=== PATIENT | female | born 1970 | race Caucasian/White ===

== ENCOUNTER → 2019-11-08 08:43 | Outpatient (CLI) | payer OTHER, SELFPAY ==
--- NOTE | 2019-11-08 | DI.MRI.S_ITS ---
PROCEDURE: MR CERVICAL SPINE WO CON INDICATIONS: Pain in right shoulder TECHNIQUE: Noncontrast sagittal T1 spin echo and T2 fast spin echo, sagittal STIR, foraminal oblique sagittal T2 fast spin echo, and axial gradient echo or T2 fast spin echo through the cervical spine. COMPARISON: None. FINDINGS: Image quality: Partially degraded by motion artifact. Alignment and Curvature: There is loss of normal cervical lordosis. There is mild, grade 1 retrolisthesis of C3 on C4 and C4 on C5. Bone Marrow: Marrow demonstrates normal overall signal. Mild reactive signal within the endplates adjacent to the C3-C4, C4-C5, C5-C6, and C6-C7 intervertebral discs. Spinal Cord: Visualized spinal cord has normal size and signal. No cerebellar tonsillar herniation. Paraspinous Soft Tissues: No paravertebral masses. Prevertebral soft tissues are normal in thickness. C2-C3: Mild disc desiccation. No significant canal, nor foraminal stenosis. C3-C4: Mild disc desiccation. Mild diffuse disc bulge with superimposed central protrusion. Moderate canal stenosis. No foraminal stenosis. C4-C5: Moderate disc desiccation. Moderate diffuse disc bulge with superimposed right far lateral broad-based protrusion. Mild bilateral facet hypertrophy. Moderate canal stenosis. Severe right and moderate left foraminal stenosis. Right C5 nerve root compression. C5-C6: Moderate disc desiccation. Mild disc height loss. Mild diffuse disc bulge with superimposed right far lateral broad-based protrusion. Mild facet and uncovertebral hypertrophy bilaterally. Mild canal stenosis. Severe right and mild left foraminal stenosis. Right C6 nerve root compression. C6-C7: Mild disc height loss and desiccation good mild diffuse disc bulge. Mild facet and uncovertebral hypertrophy bilaterally. Mild canal stenosis. Mild bilateral foraminal stenosis. C7-T1: Normal appearance. IMPRESSION: 1. Multilevel degenerative disc and facet disease, as well as uncovertebral hypertrophy. 2. Multilevel canal stenoses, worst at C3-C4 and C4-C5, where there are moderate canal stenoses present. 3. Multilevel foraminal stenoses, worst at C4-C5 and C5-C6 on the right where there is associated intraforaminal nerve root compression. Recommend correlation with clinical symptoms to ascertain relevance of these findings. Dictated by: Adrienne Le M.D. on 11/09/2019 at 11:53 Approved by: Adrienne Le M.D. on 11/09/2019 at 11:57
== END ==
PROVIDERS: PCP Family Medicine; Visit Provider Family Medicine
DX: M25.511 Pain in right shoulder (principal); M50.11 Cervical disc disorder with radiculopathy, high cervical region; M48.02 Spinal stenosis, cervical region
CPT/HCPCS: 72141

== ENCOUNTER 2019-12-24 08:45 | Emergency (ER) | payer OTHER, SELFPAY ==
[2019-12-24 09:05] VITALS: BP 111/53; PULSE 68; RESP 15; TEMP 37.6; O2SAT 99; BMI 23.1
[2019-12-24 09:35] VITALS: PULSE 62
--- NOTE | 2019-12-24 09:51 | DI.US.S_ITS ---
PROCEDURE: US PERIPH VENOUS LOW EXTREM LT INDICATIONS: CALF PAIN TECHNIQUE: Real-time imaging, as well as color and pulse Doppler interrogation, were performed of the lower extremity deep veins from the inguinal ligament to the popliteal fossa. COMPARISON: None. FINDINGS: The common femoral, femoral and popliteal veins are normally compressible, and free of intraluminal thrombus. Color and pulse Doppler demonstrate normal phasic intraluminal flow. There is normal augmentation response to distal compression maneuver. IMPRESSION: No evidence of deep vein thrombosis of the left lower extremity. Dictated by: Wilfredo Pavon M.D. on 12/24/2019 at 9:28 Approved by: Wilfredo Pavon M.D. on 12/24/2019 at 10:23
[2019-12-24] MEDS: IBUPROFEN 400 MG TABLET 800 MG PO (10:38)
[2019-12-24 11:03] LABS: Add Manual Diff / Slide Review NO; Basophils Absolute Auto 0 /uL (0-100); Basophils Percent Auto 0.7 % (0-2); Eosinophils Absolute Auto 100 /uL (0-450); Eosinophils Percent Auto 1.9 % (2-4); Hematocrit 42.5 % (36-46); Hemoglobin 14.4 g/dL (12.0-16.0); Lymphocytes Absolute Auto 2400 /uL (1100-4500); Lymphocytes Percent Auto 33.1 % (25-40); Mean Corpuscular HGB Conc 33.9 % (30-36); Mean Corpuscular Hemoglobin 32.4 PG (26-34); Mean Corpuscular Volume 95.6 fL (80-100); Monocytes Absolute Auto 500 /uL (0-900); Monocytes Percent Auto 6.8 % (3-14); Neutrophils Absolute Auto 4100 /uL (1500-7000); Neutrophils Percent Auto 57.5 % (50-75); Platelet Count 255 X10^3/uL (150-400); Red Blood Cell Count 4.45 X10^6/uL (4.0-5.2); Red Cell Distribution Width 12.9 % (11.6-14.8); White Blood Cell Count 7.2 X10^3/uL (4.5-11.0)
[2019-12-24 11:17] LABS: BUN Creatinine Ratio 16.3 (6-22); Blood Urea Nitrogen 13 mg/dL (7-17); Calcium 9.3 mg/dL (8.4-10.2); Carbon Dioxide 26 mmol/L (22-32); Chloride 103 mmol/L (98-107); Creatine Kinase 98 U/L (30-135); Estimated Glomerular Filt Rate > 60.0 mL/min (>60); Glucose 91 mg/dL (70-100); HEMOLYSIS < 15 (0-50); Potassium 4.1 mmol/L (3.4-5.1); Sodium 138 mmol/L (137-145)
[2019-12-24 11:18] LABS: C-Reactive Protein Quant < 0.5 mg/dL (<1.0)
[2019-12-24 11:19] LABS: Erythrocyte Sedimentation Rate 5 MM/HR (0-20)
--- NOTE | 2019-12-24 11:40 | ED_ITS ---
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 She denied any fall or injury otherwise. She has had no back pain. She denies a previous history of phlebitis or blood clots. She has never before had pain and discomfort like this. She has not been climbing on a ladder or stairs. She states that the pain is a dull achy discom fort that is 4 to 5/10 in intensity. It is annoying. It is worse with plantar flexion of her foot when walking. She has no pain and discomfort over the Achilles tendon or heel. She is unaware of any injury. She does not smoke cigarettes drink alcohol or use any drugs. She denies any fever chills or sweats chest pain cough shortness of breath abdominal pain nausea vomiting or diarrhea. Related Data Home Medications Medication Instructions Recorded Confirmed cholecalciferol (vitamin D3) 5,000 iu PO DAILY #0 02/25/18 12/24/19 valacyclovir 500 mg tablet 500 mg PO DAILY 177 Days #180 tab 12/30/18 12/24/19 cannabidiol 100 mg/mL oral solution 10 mg PO DAILY ml 12/18/19 12/24/19 lamotrigine 100 mg tablet 100 mg PO DAILY tab 12/18/19 12/24/19 sennosides 8.6 mg tablet 8.6 mg PO DAILY #0 12/18/19 12/24/19 lifitegrast [Xiidra] 1 drp OPHTHALMIC (EYE) BID 12/24/19 12/24/19 norethindrone-e.estradiol-iron 1 tab PO DAILY 12/24/19 12/24/19 [12/14 (28)] trazodone 100 mg PO BEDTIME PRN 12/24/19 12/24/19 Previous Rx's Medication Instructions Recorded cyclobenzaprine 10 mg PO TID PRN #14 tab 12/24/19 ibuprofen 600 mg PO Q6H PRN #20 tab 12/24/19 duloxetine 20 mg capsule,delayed 20 mg PO BID #180 cap 12/25/19 release Allergies Allergy/AdvReac Type Severity Reaction Status Date / Time cephalexin [From KEFLEX] Allergy Intermediate RED SPOTS Verified 12/24/19 09:05 ON FACE Review of Systems Review of Systems ROS Unobtainable: All systems reviewed & are unremarkable except as noted in HPI and below Patient History Social History Smoking Status: Never smoker Smoking Status: Never smoker Exam Narrative Exam Narrative: PHYSICAL EXAM: CONSTITUTIONAL: Awake, Alert, Oriented, Coherent, Cooperative in NAD. Does not appear toxic or ill. HEAD: AT/NC EENT: PERRL, FROM of eyes, no discharge, no nystagmus Oral mucosa is moist and pink, posterior pharynx is without erythema or exuda te. NECK: Supple, no obvious JVD, Trachea is midline without stridor, SPINE: No gross deformity, no palpable tenderness of the cervical, thoracic, lumbar or sacral spine. No CVA tenderness. LUNGS: Clear with symmetrical breath sounds without respiratory distress HEART: Normal heart tones, regular rhythm and rate without murmur. ABDOMEN: Soft, non-tender, normal bowel sounds without guarding, rebound, rigidity or palpable mass or organomegaly. EXTREMITIES: No edema, cyanosis, deformity. The patient's left knee is normal with flexion-extension no swelling bruising or erythema. There is no tenderness to palpation over the fibular head or proximal medial tibia. There is no tende rness to palpation over the talofibular or talar tibial ligaments or medial and lateral malleoli. There is no tenderness to palpation over the heel and the distal Achilles tendon. However, the distal calf as it inserts into the Achilles tendon is mildly tender without erythema swelling or bruising noted. The bulk of the posterior calf is nontender. SKIN: No rash, bruising, petechiae or purpura. NEURO: Awake, alert, oriented, conversive, no focal facial asymmetry, moves all 4 extremities and is ambulatory Initial Vital Signs Initial Vital Signs: Vital Signs Temperature 99.6 F 12/24/19 09:05 Pulse Rate 68 12/24/19 09:05 Respiratory Rate 15 12/24/19 09:05 Blood Pressure 111/53 L 12/24/19 09:05 Pulse Oximetry 99 12/24/19 09:05 Course Course Course Narrative: 1140: The patient's ultrasound was negative for deep vein thrombophlebitis. Her electrolytes white blood count and CPK were all normal. The patient will be discharged with a muscle relaxant and on nonsteroidal ibu profen 600 mg q.6 hours. She will be advised to follow-up with her primary care physician. She was advised to rest her leg as much as possible and apply cold compresses or heat whichever makes it feel better every 2-4 hours for 20-30 minutes as needed. The patient was advised to follow-up with her primary care physician because of the does not improve and get better she may need to be seen by Physical therapy. Orders Ordered: Discontinued Medications Ibuprofen (Advil) 800 mg PO NOW ONE Stop: 12/24/19 09:52 Last Admin: 12/24/19 10:38 Dose: 800 mg Documented by: STELLAARRINGTO Vital Signs Vital signs: Vital Signs - 8 hr 12/24/19 09:05 12/24/19 09:35 Temperature 99.6 F Pulse Rate 68 Pulse Rate [Left Dorsalis Pedis] 62 Respiratory Rate 15 Blood Pressure 111/53 L Pulse Oximetry 99 MDM - Extremity (Nontraumatic) Lab Data Attestation: I reviewed the patient's lab results. Result diagrams: 12/24/19 10:55 12/24/19 10:55 Labs: Lab Results 12/24/19 12/24/19 Range/Units 10:55 10:55 WBC 7.2 (4.5-11.0) X10^3/uL RBC 4.45 (4.0-5.2) X10^6/uL Hgb 14.4 (12.0-16.0) g/dL Hct 42.5 (36-46) % MCV 95.6 (80-100) fL MCH 32.4 (26-34) PG MCHC 33.9 (30-36) % RDW 12.9 (11.6-14.8) % Plt Count 255 (150-400) X10^3/uL Neut % (Auto) 57.5 (50-75) % Lymph % (Auto) 33.1 (25-40) % [place] % (Auto) 6.8 (3-14) % Eos % (Auto) 1.9 L (2-4) % Baso % (Auto) 0.7 (0-2) % Neut # (Auto) 4100 (4476-6618) /uL Lymph # (Auto) 2400 (1878-2980) /uL [place] # (Auto) 500 (0-900) /uL Eos # (Auto) 100 (0-450) /uL Baso # (Auto) 0 (0-100) /uL ESR 5 (0-20) MM/HR Sodium 138 (137-145) mmol/L Potassium 4.1 (3.4-5.1) mmol/L Chloride 103 (98-107) mmol/L Carbon Dioxide 26 (22-32) mmol/L BUN 13 (7-17) mg/dL Creatinine 0.80 (0.52-1.04) mg/dL Estimated GFR > 60.0 (>60) mL/min BUN/Creatinine Ratio 16.3 (6-22) Glucose 91 (70-100) mg/dL Calcium 9.3 (8.4-10.2) mg/dL Total Creatine Kinase 98 (30-135) U/L C-Reactive Protein < 0.5 (<1.0) mg/dL Discharge Plan Departure Patient Disposition: Home Clinical Impression: Muscle strain, Tenderness of left calf, Tendinopathy Discharge Date/Time: 12/24/19 11:54 Instructions: Tendinopathy, Calf Muscle Strain, DI for Tendinitis, DI for Muscle Strain Activity Restrictions/Additional Instructions: Rest your leg as much as possible. Apply cold compresses every 2-3 hours for 20-30 minutes or heat at this point to find out whether not it help you with the pain and discomfort you need to follow-up with your primary care physician and be re-evaluated in 3-5 days. If the pain suddenly gets worse need to return to the emergency department Prescriptions: New ibuprofen 600 mg tablet 600 mg PO Q6H PRN (Reason: pain) Qty: 20 RF: 0 cyclobenzaprine 10 mg tablet 10 mg PO TID PRN (Reason: muscle spasm) Qty: 14 RF: 0 No Action valacyclovir 500 mg tablet 500 mg PO DAILY 177 Days Qty: 180 RF: 0 lamotrigine [Lamictal] 100 mg tablet 100 mg PO DAILY RF: 0 cannabidiol 100 mg/mL solution 10 mg PO DAILY RF: 0 cholecalciferol (vitamin D3) 5,000 UNIT capsule 5,000 iu PO DAILY Qty: 0 RF: 0 sennosides [senna] 8.6 mg tablet 8.6 mg PO DAILY Qty: 0 RF: 0 duloxetine 20 mg capsule,delayed release(DR/EC) 20 mg PO BID Qty: 180 RF: 0 norethindrone-e.estradiol-iron [June FE 12/14 (28)] 1 mg-20 mcg (21)/75 mg (7) tablet 1 tab PO DAILY RF: 0 Xiidra 5 % dropperette 1 drp ophthalmic (eye) BID RF: 0 trazodone 50 mg tablet 100 mg PO BEDTIME PRN (Reason: sleep) RF: 0 Referrals: Melinda Franco DO [Primary Care Provider] -
[2019-12-24 11:53] VITALS: BP 106/55; PULSE 73; RESP 16; O2SAT 98
== END 2019-12-24 11:54 | disposition home or self-care (01) ==
PROVIDERS: Emergency Provider Emergency Medicine; PCP Family Medicine
DX: S86.112A Strain of other muscle(s) and tendon(s) of posterior muscle group at lower leg level, left leg, initial encounter (principal); M76.892 Other specified enthesopathies of left lower limb, excluding foot
CPT/HCPCS: 36415; 80048; 82550; 85025; 85651; 86140; 93971; 99283; 99284

== ENCOUNTER 2020-01-30 01:54 | Emergency (ER) | payer OTHER, SELFPAY ==
[2020-01-30 02:07] VITALS: PULSE 244; O2SAT 100
[2020-01-30] MEDS: ADENOSINE 6 MG/2 ML VIAL 18 MG IV (02:33)
[2020-01-30 03:02] LABS: BUN Creatinine Ratio 15.6 (6-22); Blood Urea Nitrogen 14 mg/dL (7-17); Calcium 9.6 mg/dL (8.4-10.2); Carbon Dioxide 25 mmol/L (22-32); Chloride 102 mmol/L (98-107); Estimated Glomerular Filt Rate > 60.0 mL/min (>60); Glucose 152 mg/dL (70-100); HEMOLYSIS < 15 (0-50); Potassium 4.4 mmol/L (3.4-5.1); Sodium 136 mmol/L (137-145)
[2020-01-30 03:29] LABS: Add Manual Diff / Slide Review NO; Basophils Absolute Auto 100 /uL (0-100); Basophils Percent Auto 1.1 % (0-2); Eosinophils Absolute Auto 300 /uL (0-450); Eosinophils Percent Auto 2.6 % (2-4); Hematocrit 49.7 % (36-46); Hemoglobin 17.1 g/dL (12.0-16.0); Lymphocytes Absolute Auto 3900 /uL (1100-4500); Lymphocytes Percent Auto 36.4 % (25-40); Mean Corpuscular HGB Conc 34.4 % (30-36); Mean Corpuscular Volume 95.8 fL (80-100); Monocytes Absolute Auto 700 /uL (0-900); Monocytes Percent Auto 6.1 % (3-14); Neutrophils Absolute Auto 5700 /uL (1500-7000); Neutrophils Percent Auto 53.8 % (50-75); Platelet Count 375 X10^3/uL (150-400); Red Blood Cell Count 5.19 X10^6/uL (4.0-5.2); Red Cell Distribution Width 12.7 % (11.6-14.8); White Blood Cell Count 10.6 X10^3/uL (4.5-11.0)
[2020-01-30 03:53] VITALS: PULSE 93; RESP 14; TEMP 36.6; O2SAT 98
[2020-01-30 03:57] VITALS: BP 107/66
[2020-01-30 04:08] LABS: Troponin I < 0.012 ng/mL (0.01-0.034)
--- NOTE | 2020-01-30 07:41 | ED_ITS ---
HPI - Arrhythmia/Palpitations General Chief Complaint: Arrhythmia/Palpitations Stated Complaint: heart beating real fast Time Seen by Provider: 01/30/20 02:00 Source: patient Mode of arrival: Ambulatory Limitations: no limitations History of Present Illness HPI narrative: 49-year-old female nonsmoker With history of SVT presents with her and a chief complaint of a rather sudden onset of rapid heart rate a nd shortness of breath. She attempted vagal maneuvers at home but unsuccessfully. She is not having any chest pain and is a bit dizzy but not significantly lightheaded. She denies any recent travel nor fever or chills. MD complaint: rapid heart beat, heart racing and palpitations Onset (ago): hour(s) Duration: constant Severity: severe Context: occurred during rest Arrhythmia history: SVT Associated symptoms: shortness of breath Treatments prior to arrival: vagal maneuvers Related Data Home Medications Medication Instructions Recorded Confirmed cholecalciferol (vitamin D3) 5,000 iu PO DAILY #0 02/25/18 12/24/19 valacyclovir 500 mg tablet 500 mg PO DAILY 177 Days #180 tab 12/30/18 12/24/19 cannabidiol 100 mg/mL oral solution 10 mg PO DAILY ml 12/18/19 12/24/19 lamotrigine 100 mg tablet 100 mg PO DAILY tab 12/18/19 12/24/19 sennosides 8.6 mg tablet 8.6 mg PO DAILY #0 12/18/19 12/24/19 lifitegrast [Xiidra] 1 drp OPHTHALMIC (EYE) BID 12/24/19 12/24/19 norethindrone-e.estradiol-iron 1 tab PO DAILY 12/24/19 12/24/19 [12/14 (28)] trazodone 100 mg PO BEDTIME PRN 12/24/19 12/24/19 Previous Rx's Medication Instructions Recorded cyclobenzaprine 10 mg PO TID PRN #14 tab 12/24/19 ibuprofen 600 mg PO Q6H PRN #20 tab 12/24/19 duloxetine 20 mg capsule,delayed 20 mg PO BID #180 cap 12/28/19 release propranolol 10 mg tablet 10 mg PO BID PRN #60 tab MDD 20 01/26/20 Allergies Allergy/AdvReac Type Severity Reaction Status Date / Time cephalexin [From KEFLEX] Allergy Intermediate RED SPOTS Verified 12/24/19 09:05 ON FACE Review of Systems Constitutional Constitutional: Denies chills, Denies fatigue, Denies fever(s), Denies frequent falls, Denies lethargy and Denies weakness Eyes Eyes: Denies change in vision, Denies eye discharge, Denies irritation and De nies loss of vision ENT Ears, Nose, Mouth, and Throat: Denies change in voice, Denies dizziness, Denies neck pain, Denies sore throat and Denies throat swelling Cardiovascular Cardiovascular: Denies chest pain, Denies irregular heart rhythm, Reports lightheadedness, Reports palpitations, Reports dyspnea, Reports dyspnea on e xertion and Denies orthopnea Respiratory Respiratory: Denies cough, Reports dyspnea, Reports dyspnea on exertion and Denies wheezing Gastrointestinal Gastrointestinal: Denies abdominal pain, Denies change in bowel habits, Denies diarrhea, Denies nausea and Denies vomiting Genitourinary Genitourinary: Denies hematuria, Denies flank pain, Denies urinary incontinence and Denies urinary urgency Musculoskeletal Musculoskeletal: Denies back pain, Denies muscle weakness, Denies neck pain, Denies numbness and Denies tingling Integumentary/Breasts Skin/Breast: Denies pruritus, Denies erythema, Denies rash and Denies wounds Neurologic Neurologic: Denies behavioral changes, Denies confusion, Denies dizziness, Denies frequent falls, Denies loss of vision, Denies numbness, Denies tingling and Denies weakness Psychiatric Psychiatric: Denies anxiety, Denies behavioral changes, Denies confusion, Denies depression, Denies homicidal ideation and Denies suicidal ideation Endocrine Endocrine: Denies fatigue, Denies flushing and Reports palpitations Hematologic/Lymphatic Hematologic/Lymphatic: Denies easy bruising Allergic/Immunologic Allergic/Immunologic: Denies urticaria, Denies throat swelling and Denies wheezing Patient History Social History Smoking Status: Never smoker Smoking Status: Never smoker Exam Narrative Exam Narrative: GENERAL: [49] year old patient appears stated age. Well-no urished, well-developed patient, in mild distress. Anxious HEAD: Atraumatic. Normocephalic. EYES: Pupils equal round and reactive. Extraocular motions intact. No scleral icterus. No injection or drainage. ENT: Nose without bleeding, purulent drainage. Throat without erythema, tonsillar hypertrophy or exudate. Airway patent. NECK: Trachea midline. Non tender CARDIOVASCULAR:Rapid but regular rhythm without murmurs, gallops, or rubs. RESPIRATORY: Clear to auscultation. Breath sounds equal bilaterally. No wheezes, rales, or rhonchi. GASTROINTESTINAL: Abdomen soft, non-tender, nondistended. EXTREMITIES: No edema or joint tenderness. BACK: Nontender without deformity or crepitance. No flank tenderness. NEURO: AOx3. SKIN: No rash or erythema of visible areas Initial Vital Signs Initial Vital Signs: Vital Signs Pulse Rate 244 H 01/30/20 02:07 Pulse Oximetry 100 01/30/20 02:07 Course Course Course Narrative: Patient given adenosine 6 mg IV push rapidly and after a brief pause resumes normal sinus rhythm. Patient has complete resolution of symptoms and is otherwise well and free of complaint. Orders Ordered: ED Orders 01/30/20 EKG-12 Lead Routine EKG-12 Lead Stat 01/30/20 02:15 BMP [Basic Metabolic Panel] Stat CBC Auto Diff [Complete Blood Count AUTO DIFF] Stat Troponin I Stat Vital Signs Vital signs: Vital Signs - 8 hr 01/30/20 02:07 01/30/20 03:53 01/30/20 03:57 Temperature 97.9 F Pulse Rate 244 H 93 H Respiratory Rate 14 Blood Pressure [Left Arm] 107/66 Pulse Oximetry 100 98 MDM - Arrhythmia/Palpitations Lab Data Result diagrams: 01/30/20 02:15 01/30/20 02:15 Labs: Lab Results 01/30/20 01/30/20 01/30/20 Range/Units 02:15 02:15 02:15 WBC 10.6 (4.5-11.0) X10^3/uL RBC 5.19 (4.0-5.2) X10^6/uL Hgb 17.1 H (12.0-16.0) g/dL Hct 49.7 H (36-46) % MCV 95.8 (80-100) fL MCH 33.0 (26-34) PG MCHC 34.4 (30-36) % RDW 12.7 (11.6-14.8) % Plt Count 375 (150-400) X10^3/uL Neut % (Auto) 53.8 (50-75) % Lymph % (Auto) 36.4 (25-40) % [place] % (Auto) 6.1 (3-14) % Eos % (Auto) 2.6 (2-4) % Baso % (Auto) 1.1 (0-2) % Neut # (Auto) 5700 (0656-3460) /uL Lymph # (Auto) 3900 (2495-7661) /uL [place] # (Auto) 700 (0-900) /uL Eos # (Auto) 300 (0-450) /uL Baso # (Auto) 100 (0-100) /uL Sodium 136 L (137-145) mmol/L Potassium 4.4 (3.4-5.1) mmol/L Chloride 102 (98-107) mmol/L Carbon Dioxide 25 (22-32) mmol/L BUN 14 (7-17) mg/dL Creatinine 0.90 (0.52-1.04) mg/dL Estimated GFR > 60.0 (>60) mL/min BUN/Creatinine Ratio 15.6 (6-22) Glucose 152 H (70-100) mg/dL Calcium 9.6 (8.4-10.2) mg/dL Troponin I < 0.012 (0.01-0.034) ng/mL Discharge Plan Departure Patient Disposition: Home Clinical Impression: PSVT (paroxysmal supraventricular tachycardia) Discharge Date/Time: 01/30/20 04:03 Instructions: DI for Paroxysmal Supraventricular Tachycardia Activity Restrictions/Additional Instructions: *You have been diagnosed with [SVT] *What to do: * continue to yamile medications as directed *Follow up with your primary care provider in 2-3 days, call for an appointment. Let them know you were seen in the Emergency Department and that we ask that you be seen in follow up *Return to ER if you should have any new, worsening or concerning symptoms Prescriptions: No Action valacyclovir 500 mg tablet 500 mg PO DAILY 177 Days Qty: 180 RF: 0 lamotrigine [Lamictal] 100 mg tablet 100 mg PO DAILY RF: 0 cannabidiol 100 mg/mL solution 10 mg PO DAILY RF: 0 cholecalciferol (vitamin D3) 5,000 UNIT capsule 5,000 iu PO DAILY Qty: 0 RF: 0 sennosides [senna] 8.6 mg tablet 8.6 mg PO DAILY Qty: 0 RF: 0 duloxetine 20 mg capsule,delayed release(DR/EC) 20 mg PO BID Qty: 180 RF: 0 propranolol 10 mg tablet 10 mg PO BID MDD 20 PRN (Reason: anxiety) Qty: 60 RF: 0 norethindrone-e.estradiol-iron [12/14 (28)] 1 mg-20 mcg (21)/75 mg (7) tablet 1 tab PO DAILY RF: 0 Xiidra 5 % dropperette 1 drp ophthalmic (eye) BID RF: 0 trazodone 50 mg tablet 100 mg PO BEDTIME PRN (Reason: sleep) RF: 0 ibuprofen 600 mg tablet 600 mg PO Q6H PRN (Reason: pain) Qty: 20 RF: 0 cyclobenzaprine 10 mg tablet 10 mg PO TID PRN (Reason: muscle spasm) Qty: 14 RF: 0 Referrals: Melinda Franco DO [Primary Care Provider] -
== END 2020-01-30 04:03 | disposition home or self-care (01) ==
PROVIDERS: Emergency Provider Emergency Medicine; PCP Family Medicine
DX: I47.1 Supraventricular tachycardia (principal)
CPT/HCPCS: 36415; 80048; 84484; 85025; 93005; 93010; 96374; 99284; J0153

== ENCOUNTER → 2020-05-12 09:35 | Outpatient (CLI) | payer OTHER, SELFPAY ==
--- NOTE | 2020-05-12 | DI.MG.S_ITS ---
BILATERAL DIGITAL DIAGNOSTIC MAMMOGRAM 3D/2D: 05/12/2020 CLINICAL: Breast pain. Comparison is made to exams dated: 05/24/2015 mammogram, 03/30/2014 mammogram, and 12/04/2012 mammogram - [facility]. The tissue of both breasts is heterogeneously dense. This may lower the sensitivity of mammography. There is an irregular equal density global asymmetry in the left breast central to the nipple middle depth. NO focal areas of architectural distortion. No other significant masses, calcifications, or other findings are seen in either breast. Specifically, no finding to correspond to the patient's right breast upper outer quadrant pain. IMPRESSION: INCOMPLETE: NEEDS ADDITIONAL IMAGING EVALUATION The irregular equal density global asymmetry in the left breast most likely is fibroglandular tissue but remains indeterminate. This has developed since the previous study. An ultrasound is recommended. There is no abnormality seen in the right breast to correspond with the pain in the upper outer quadrant, however, ultrasound is recommended. Bilateral ultrasound was performed immediately following this exam. This exam was interpreted at Station ID: [id number]. NOTE: For mammograms, a report in lay terms will be sent to the patient. Approximately 15% of breast malignancies will not be visualized mammographically. In the management of a palpable breast mass, a negative mammogram must not discourage biopsy of a clinically suspicious lesion. Electronically Signed By: Emmy ward/:05/12/2020 10:48:47 ACR BI-RADS Category 0: Incomplete [id number]
--- NOTE | 2020-05-12 | DI.US.S_ITS ---
LIMITED ULTRASOUND OF RIGHT BREAST: 05/12/2020 CLINICAL: Rt Breast pain. Comparison is made to exams dated: 05/12/2020 mammogram - [facility] and 05/24/2015 mammogram - [facility]. Real-time and continuous wave Doppler ultrasound of the right breast 8-10 o'clock region were performed. No significant abnormalities were seen sonographically in the right breast. Specifically, no finding to correspond to the patient's pain. IMPRESSION: NEGATIVE There is no sonographic evidence of malignancy or finding to explain right breast pain. Return to annual mammogram screening schedule for the right breast is recommended. Findings and recommendations were conveyed to the patient at time of exam. This exam was interpreted at Station ID: [id number]. Electronically Signed By: Emmy ward/:05/12/2020 12:59:57 Ultrasound BI-RADS: 1 Negative
--- NOTE | 2020-05-12 10:56 | DI.US.S_ITS ---
LIMITED ULTRASOUND OF LEFT BREAST: 05/12/2020 CLINICAL: ABN MAMMO. Comparison is made to exams dated: 05/12/2020 mammogram - [facility] and 05/24/2015 mammogram - [facility]. Color flow and real-time ultrasound of the left breast 3-5 o'clock region were performed. Haq scale images of the real-time examination were reviewed. No significant abnormalities were seen sonographically in the left breast. Specifically, no finding to correspond to the patient's mammographic finding of progressive global glandular asymmetry. IMPRESSION: PROBABLY BENIGN No sonographic finding of malignancy. A follow-up left mammogram in 6 months is recommended to demonstrate stability of the changed glandular pattern compared to prior studies. Findings and recommendations were conveyed to the patient at time of exam. This exam was interpreted at Station ID: [id number]. Electronically Signed By: Emmy ward/:05/12/2020 13:02:30 letter sent: Followup Recommended Ultrasound BI-RADS: 3 Probably benign
== END ==
PROVIDERS: PCP Family Medicine; Referring Provider Family Medicine; Visit Provider Family Medicine
DX: R92.8 Other abnormal and inconclusive findings on diagnostic imaging of breast (principal); N64.4 Mastodynia; N64.89 Other specified disorders of breast
CPT/HCPCS: 76642; 77066; G0279

== ENCOUNTER → 2020-11-14 12:41 | Outpatient (CLI) | payer OTHER, SELFPAY ==
--- NOTE | 2020-11-14 | DI.MG.S_ITS ---
UNILATERAL LEFT DIGITAL DIAGNOSTIC MAMMOGRAM 3D/2D SHORT-TERM FOLLOW-UP: 11/14/2020 CLINICAL: Patient returns for a 6 month follow up of the left breast. Comparison is made to exams dated: 05/12/2020 ultrasound, 05/12/2020 mammogram - [facility], and 05/24/2015 mammogram - [facility]. The tissue of left breast is heterogeneously dense. This may lower the sensitivity of mammography. Redemonstration of previously described irregular equal density global asymmetry in the left breast central to the nipple middle depth. This is not significantly changed and was not seen on the prior ultrasound. No other significant masses or calcifications are seen in the breast. IMPRESSION: PROBABLY BENIGN The stable equal density global asymmetry in the left breast most likely is fibroglandular tissue and is probably benign. A follow-up left mammogram with possible ultrasound in 6 months is recommended to demonstrate stability. The patient will also be due for screening mammogram of the contralateral breast at that time. Findings and recommendations were conveyed to the patient during today's evaluation. This exam was interpreted at Station ID: [id number]. NOTE: For mammograms, a report in lay terms will be sent to the patient. Approximately 15% of breast malignancies will not be visualized mammographically. In the management of a palpable breast mass, a negative mammogram must not discourage biopsy of a clinically suspicious lesion. Electronically Signed By: Sebastian Castillo M.D. aty/:11/14/2020 13:52:13 letter sent: Followup Recommended ACR BI-RADS Category 3: Probably benign 3343F
== END ==
PROVIDERS: PCP Family Medicine; Referring Provider Family Medicine; Visit Provider Family Medicine
DX: R92.8 Other abnormal and inconclusive findings on diagnostic imaging of breast (principal); N64.89 Other specified disorders of breast
CPT/HCPCS: 77065; G0279

== ENCOUNTER → 2021-05-03 14:53 | Outpatient (CLI) | payer OTHER, SELFPAY ==
--- NOTE | 2021-05-03 | DI.MG.S_ITS ---
BILATERAL DIGITAL DIAGNOSTIC MAMMOGRAM 3D/2D SHORT-TERM FOLLOW-UP: 05/03/2021 CLINICAL: Short term follow up of the left breast, due for bilateral imaging. Comparison is made to exams dated: 11/14/2020 mammogram, 05/12/2020 mammogram - [facility], 05/24/2015 mammogram - [facility], 05/12/2020 ultrasound, 03/26/2011 mammogram - [facility], and 03/30/2014 mammogram - [facility]. The tissue of both breasts is heterogeneously dense. This may lower the sensitivity of mammography. There is an irregular equal density global asymmetry in the left breast central to the nipple middle depth. This is not significantly changed and was not seen on the prior ultrasound. No other significant masses, calcifications, or other findings are seen in either breast. IMPRESSION: PROBABLY BENIGN The irregular equal density global asymmetry in the left breast most likely is fibroglandular tissue and is probably benign. A follow-up mammogram in 12 months is recommended. This exam was interpreted at Station ID: [id number]. NOTE: For mammograms, a report in lay terms will be sent to the patient. Approximately 15% of breast malignancies will not be visualized mammographically. In the management of a palpable breast mass, a negative mammogram must not discourage biopsy of a clinically suspicious lesion. Electronically Signed By: Luís hooper/cassie:05/03/2021 15:31:44 letter sent: Followup Recommended ACR BI-RADS Category 3: Probably benign 3343F
== END ==
PROVIDERS: PCP Family Medicine; Referring Provider Family Medicine; Visit Provider Family Medicine
DX: R92.8 Other abnormal and inconclusive findings on diagnostic imaging of breast (principal); N64.89 Other specified disorders of breast
CPT/HCPCS: 77066; G0279

== ENCOUNTER → 2022-06-19 10:00 | Outpatient (CLI) | payer OTHER, SELFPAY ==
--- NOTE | 2022-06-19 | DI.MG.S_ITS ---
BILATERAL DIGITAL DIAGNOSTIC MAMMOGRAM 3D/2D: 06/19/2022 CLINICAL: Left short follow up, due bilateral. Comparison is made to exams dated: 05/03/2021 mammogram, 11/14/2020 mammogram, 05/12/2020 mammogram - [facility], and 05/24/2015 mammogram - [facility]. The tissue of both breasts is heterogeneously dense. This may lower the sensitivity of mammography. There is a stable global asymmetry in the left breast central to the nipple middle depth. This was not seen on the prior ultrasound. No other significant masses, calcifications, or other findings are seen in either breast. IMPRESSION: BENIGN There is no mammographic evidence of malignancy. The stable global asymmetry in the left breast is consistent with fibroglandular tissue and is benign. A 1 year screening mammogram is recommended. Based on the Tyrer Cuzick model (a risk assessment model) the patient's lifetime risk is 12.9% and her 10 year risk is 3.2%. According to the ACR, ACS, and NCCN guidelines, an annual breast MRI exam along with mammogram is recommended if the patient's lifetime risk is 20% or greater. This exam was interpreted at Station ID: [id number]. NOTE: For mammograms, a report in lay terms will be sent to the patient. Approximately 15% of breast malignancies will not be visualized mammographically. In the management of a palpable breast mass, a negative mammogram must not discourage biopsy of a clinically suspicious lesion. Electronically Signed By: Cory Orta M.D. slc/:06/19/2022 10:29:05 letter sent: Normal Exam ACR BI-RADS Category 2: Benign Finding(s) 3342F
== END ==
PROVIDERS: PCP Family Medicine; Referring Provider Family Medicine; Visit Provider Family Medicine
DX: R92.8 Other abnormal and inconclusive findings on diagnostic imaging of breast (principal)
CPT/HCPCS: 77066; G0279

== ENCOUNTER → 2022-11-22 11:57 | Outpatient (CLI) | payer OTHER, SELFPAY ==
--- NOTE | 2022-11-22 | DI.ECHO.S_ITS ---
[facility] +---------+ : : [address] : [place] : : : : [id number] : : : : Phone: [phone]---------+ Echocardiogram Report + + :Name: REBECA HARRIS Study Date: 11/22/2022 Height: 64 in : :[facility] ReadingLocation: Weight: 140 lb : : Gender: Female BSA: 1.7 m2 : :: 1970 Age: 52 yrs BP: 112/78 mmHg: :Reason For Study: PALPITATIONS : :Ordering Physician: RICHARD, : :TERESA Jacobs Performed By: Mariposa Becker : :Referring: TERESA COLMENARES : + + Interpretation Summary The ejection fraction is estimated to be 55-60%. Diastolic parameters suggest probable normal left ventricular diastolic function and normal filling pressures. The right ventricle is normal in size and function. No significant valvular abnormalities. Unable to estimate PASP. Procedure: A two-dimensional transthoracic echocardiogram with color flow and Doppler was performed. The study quality was technically adequate. Images from the parasternal window were difficult to obtain and are suboptimal in quality. There is no prior echocardiogram noted for this patient. The patient was in sinus rhythm with heart rates between 58-69 bpm during the exam. Left Ventricle: The left ventricle is normal in size and wall thickness. The ejection fraction is estimated to be 55-60%. Diastolic parameters suggest probable normal left ventricular diastolic function and normal filling pressures. Right Ventricle: The right ventricle is normal in size and function. Atria: The left atrial size is normal. Right atrial size is normal. There is no Doppler evidence for an interatrial shunt. Mitral Valve: The mitral valve is normal in structure and function. There is trace mitral regurgitation. Aortic Valve: The aortic valve is not well visualized. The aortic valve opens well. There is no aortic valve stenosis. No aortic regurgitation is present. Tricuspid Valve: The tricuspid valve is normal in structure and function. No tricuspid regurgitation. Pulmonary artery pressures cannot be estimated because of the lack of a measurable TR jet velocity. Pulmonic Valve: The pulmonic valve is not well visualized. There is no pulmonic valvular regurgitation. Great Vessels: The aortic root is normal size. The ascending aorta could not be visualized. The IVC is of normal diameter and collapses greater than 50% with a sniff. This suggests a low right atrial pressure of 3 mm Hg. Pericardium/ Pleura There is no pericardial effusion. There is no pleural effusion. MMode/2D Measurements & Calculations LVIDd: 4.7 cm LVOT diam: 2.0 cm LVIDs: 2.9 cm Ao root diam: 2.7 cm FS: 37.3 % Ao Arch Diam (Prox Trans): 2.9 cm EPSS: 0.60 cm IVSd: 0.63 cm LVPWd: 0.75 cm LV bear. diameter/BSA (cm/m^2): 2.8 LV sys. diameter/BSA (cm/m^2): 1.7 LA A2 area: 16.5 cm2 RA long axis: 4.3 cm LA A4 area: 13.4 cm2 RA area: 12.5 cm2 LA length (vol): 4.3 cm RA vol: 31.1 ml LA vol: 43.5 ml RA : 18.5 ml/m2 LA vol index: 25.9 ml/m2 IVC diam: 1.3 cm RVD1 (basal): 3.0 cm RVD2 (mid): 2.3 cm TAPSE: 1.6 cm Doppler Measurements & Calculations Ao V2 max: 98.2 cm/sec LVOT Max Juan: 90.4 cm/sec Ao V2 mean: 65.8 cm/sec LV V1 max P.3 mmHg Ao max P.9 mmHg LV V1 VTI: 18.8 cm Ao mean P.0 mmHg MIKHAIL(I,D): 2.8 cm2 Ao V2 VTI: 21.3 cm MIKHAIL(V,D): 2.9 cm2 sev ratio: 0.88 MIKHAIL indexed to BSA (cm^2/m^2): 1.6 MV E max juan: 69.0 cm/sec TR max juan: 150.2 cm/sec MV A max juan: 41.8 cm/sec TR max P.0 mmHg MV E/A: 1.7 PA V2 max: 85.0 cm/sec Med Peak E' Juan: 12.0 cm/sec PA V2 mean: 60.7 cm/sec E/E' med: 5.8 PA mean P.6 mmHg Lat Peak E' Juan: 12.9 cm/sec PA pr(Accel): 20.8 mmHg E/E' lat: 5.4 E/e' average: 5.6 MV dec time: 0.23 sec SVLVOT): 58.8 ml Reading Physician:08:56 AM
[2022-11-22 13:22] LABS: COVID19 -Nasal RAPID Negative (Negative)
--- NOTE | 2022-11-22 19:12 | DI.NM.S_ITS ---
DATE OF SERVICE: 11/22/2022 PROCEDURE: Exercise stress test. INDICATION: Palpitation. CARDIAC STRESS: Patient underwent exercise stress test under the supervision of an attending staff. She walked on Joseph protocol for 8 minutes and 11 seconds, achieved maximum heart rate of 158, which was 93 percent of target heart rate. Normal blood pressure response. Resting blood pressure 108/68 mmHg and peak blood pressure 158/68 mmHg. Achieved 10.1 METs of workload. IVET -5 percent. Baseline rhythm was sinus. During stress, no convincing ischemic changes seen. No significant arrhythmias. No ischemic changes. The patient felt fatigued. CONCLUSION: Exercise stress test is negative for inducible ischemia. Normal hemodynamic response. Functional aerobic impairment -5 percent. No ischemic symptoms or significant arrhythmias. Overall, low-risk exercise stress test. Sarina Melissa - YARI/surendra/sheri doc#: [id number]/job#: [id number] dd: 11/22/2022 17:22:00 dt: 11/22/2022 19:06:00 DICTATING /COPIES TO: Lina Pro MD COPIES MNE: ORI;
== END ==
PROVIDERS: PCP Family Medicine; Referring Provider Internal Medicine Cardiovascular Disease; Visit Provider Internal Medicine Cardiovascular Disease
DX: R00.2 Palpitations (principal); Z20.822 Contact with and (suspected) exposure to COVID-19
CPT/HCPCS: 87635; 93017; 93306

== ENCOUNTER → 2023-06-25 09:20 | Outpatient (CLI) | payer OTHER, SELFPAY ==
--- NOTE | 2023-06-25 | DI.MG.S_ITS ---
BILATERAL DIGITAL SCREENING MAMMOGRAM 3D/2D WITH CAD: 06/25/2023 CLINICAL: Routine screening. Comparison is made to exams dated: 06/19/2022 mammogram, 05/03/2021 mammogram, and 05/12/2020 mammogram - . Both breasts are heterogeneously dense, which may obscure small masses (category c / 51-75% glandular tissue). Current study was also evaluated with a Computer Aided Detection (CAD) system. No significant masses, calcifications, or other findings are seen in either breast. There has been no significant interval change. IMPRESSION: NEGATIVE There is no mammographic evidence of malignancy. A 1 year screening mammogram is recommended. Based on the Tyrer Cuzick model (a risk assessment model) the patient's lifetime risk is 12.8% and her 10 year risk is 3.3%. According to the ACR, ACS, and NCCN guidelines, an annual breast MRI exam along with mammogram is recommended if the patient's lifetime risk is 20% or greater. This exam was interpreted at Station ID: [id number]. NOTE: For mammograms, a report in lay terms will be sent to the patient. Approximately 15% of breast malignancies will not be visualized mammographically. In the management of a palpable breast mass, a negative mammogram must not discourage biopsy of a clinically suspicious lesion. Electronically Signed By: Zak torre/cassie:06/25/2023 10:13:45 letter sent: Normal Exam ACR BI-RADS Category 1: Negative 3341F
== END ==
PROVIDERS: PCP Family Medicine; Referring Provider Family Medicine; Visit Provider Family Medicine
DX: Z12.31 Encounter for screening mammogram for malignant neoplasm of breast (principal)
CPT/HCPCS: 77063; 77067

== ENCOUNTER → 2023-08-08 17:03 | Outpatient (CLI) | payer OTHER, SELFPAY ==
--- NOTE | 2023-08-08 | DI.MRI.S_ITS ---
PROCEDURE: MR CERVICAL SPINE WO CON INDICATIONS: spinal stenosis in cervical region TECHNIQUE: Noncontrast sagittal T1 spin echo and T2 fast spin echo, sagittal STIR, foraminal oblique sagittal T2 fast spin echo, and axial gradient echo or T2 fast spin echo through the cervical spine. COMPARISON: [facility], MR, MR CERVICAL SPINE WO CON, 11/08/2019, 9:01. FINDINGS: Image quality: Excellent. Alignment and Curvature: There is loss of normal cervical lordosis. 3 mm of retrolisthesis of C4 on C5. 2 mm of retrolisthesis of C5 on C6. Bone Marrow: Marrow demonstrates normal overall signal. Mild reactive signal throughout the endplates of the cervical and upper thoracic spine. Spinal Cord: Visualized spinal cord has normal size and signal. No cerebellar tonsillar herniation. Paraspinous Soft Tissues: No paravertebral masses. Prevertebral soft tissues are normal in thickness. C2-C3: Normal appearance. C3-C4: Mild disc desiccation and diffuse disc bulge with superimposed central protrusion. Mild facet and uncovertebral hypertrophy. Moderate canal stenosis. Mild bilateral foraminal stenosis. No significant change. C4-C5: Mild disc desiccation and diffuse disc bulge with superimposed right far lateral protrusion. Mild facet and uncovertebral hypertrophy. Increased, moderate to severe canal stenosis with new minimal cord flattening. Severe right and moderate left foraminal stenosis is unchanged associated with right C5 nerve root compression. C5-C6: Mild disc height loss and desiccation. Mild diffuse disc bulge. Superimposed right far lateral protrusion. Mild facet and uncovertebral hypertrophy. Increased, moderate canal stenosis. Severe right foraminal stenosis with right C6 nerve root compression is unchanged. There is increased, moderate to severe left foraminal stenosis with new left C6 nerve root compression. C6-C7: Mild disc desiccation and diffuse disc bulge. Mild facet and uncovertebral hypertrophy bilaterally. Increased, moderate canal stenosis. Moderate bilateral foraminal stenosis, increased from the prior examination. C7-T1: Mild disc desiccation. Mild facet and uncovertebral hypertrophy. No significant canal nor foraminal stenosis. IMPRESSION: 1. Multilevel degenerative disc and facet disease, as well as uncovertebral hypertrophy. 2. Multilevel canal stenoses, worst at C4-C5 where there is minimal cord flattening. 3. Multilevel foraminal stenoses, worst at C4-C5 and C5-C6 where there is associated intraforaminal nerve root compression. Recommend correlation with clinical symptoms to ascertain relevance of these findings. Dictated by: Adrienne Le M.D. on 08/09/2023 at 9:02 Approved by: Adrienne Le M.D. on 08/09/2023 at 9:08
== END ==
PROVIDERS: PCP Family Medicine; Referring Provider Physical Medicine & Rehabilitation; Visit Provider Physical Medicine & Rehabilitation
DX: M48.02 Spinal stenosis, cervical region (principal); M47.812 Spondylosis without myelopathy or radiculopathy, cervical region; M50.31 Other cervical disc degeneration, high cervical region
CPT/HCPCS: 72141

== ENCOUNTER 2023-10-10 14:55 | Emergency (ER) | payer OTHER, SELFPAY ==
[2023-10-10 15:36] VITALS: BP 106/58; PULSE 68; RESP 18; TEMP 37.2; O2SAT 98; BMI 24.9
--- NOTE | 2023-10-10 15:39 | DI.RAD.S_ITS ---
PROCEDURE: XR ANKLE LT MIN 3V INDICATIONS: heard pop TECHNIQUE: 3 views of the ankle were acquired. COMPARISON: None. FINDINGS: Bones: No fractures or dislocations. Ankle mortise is normally aligned. No suspicious bony lesions. Soft tissues: No tibiotalar joint effusion. Achilles tendon appears normal. IMPRESSION: No evidence acute bony abnormality. If clinical suspicion and/or symptoms persist, further assessment with repeat plain films, or advanced imaging (e.g., CT, MRI, or bone scan) may be helpful for further assessment. Dictated by: Osiel Sharma M.D. on 10/10/2023 at 16:42 Approved by: Osiel Sharma M.D. on 10/10/2023 at 16:42
[2023-10-10] MEDS: ACETAMINOPHEN 325 MG TABLET 975 MG PO (16:02)
[2023-10-10 17:20] VITALS: BP 112/57; PULSE 64; O2SAT 98
--- NOTE | 2023-10-10 18:24 | ED_ITS ---
HPI - Extremity Injury (Lower) <Sagrario Alvares PA-C - Last Filed: 10/10/23 18:28> General Chief Complaint: Extremity Injury, Lower Stated Complaint: Lankel T-0 GLF/ heard tear Time Seen by Provider: 10/10/23 16:22 Source: patient Mode of arrival: Wheelchair History of Present Illness HPI Narrative: Patient is a 53-year-old female who presents accompanied by her for left ankle pain. [place] and she twisted her left ankle. She heard a tearing noise of the time. Her had to help carry her out. She has a history of previous sprains to her left ankle. She has not been any medications or tried any therapy. This injury happened just before her arrival to the ER. Pain is worse on the outside of her ankle. Related Data Home Medications Medication Instructions Recorded Confirmed cholecalciferol (vitamin D3) 125 5,000 iu PO DAILY ##0 02/25/18 07/03/22 mcg (5,000 unit) capsule valacyclovir 500 mg tablet 500 mg PO DAILY 177 days #180 tabs 12/30/18 07/03/22 norethindrone 1 mg-ethinyl 1 tab PO DAILY 12/24/19 07/03/22 estradiol 20 mcg (21)-iron 75 mg (7) tablet (12/14 (28)) trazodone 50 mg tablet 75 mg PO BEDTIME 07/03/22 07/03/22 Previous Rx's Medication Instructions Recorded fluoxetine 40 mg capsule 40 mg PO QAM 90 days #90 caps 07/03/22 lamotrigine 100 mg tablet 100 mg PO DAILY #90 tabs 07/03/22 lamotrigine 25 mg tablet 25 mg PO BEDTIME #42 tabs 07/03/22 propranolol 60 mg capsule,24 60 mg PO QAM 90 days #90 caps 07/03/22 hr,extended release Allergies Allergy/AdvReac Type Severity Reaction Status Date / Time cephalexin [From KEFLEX] Allergy Intermediate RED SPOTS Verified 02/20/22 14:53 ON FACE Review of Systems <Sagrario Alvares PA-C - Last Filed: 10/10/23 18:28> Review of Systems ROS Unobtainable: All systems reviewed & are unremarkable except as noted in HPI and below Patient History <Sagrario Alvares PA-C - Last Filed: 10/10/23 18:28> Social History Smoking Status: Never smoker Smoking Status: Never smoker Exam <Sagrario Alvares PA-C - Last Filed: 10/10/23 18:28> Narrative Exam Narrative: GENERAL: 53 year old patient appears stated age. Well-developed patient, in no distress. NEURO: AOx3. HEAD: Atraumatic. Normocephalic. EYES: Pupils equal round and reactive. Extraocular motions intact. No scleral icterus. No injection or drainage. ENT: Nose without bleeding or purulent drainage. Airway patent. RESPIRATORY: No distress or increased work of breathing EXTREMITIES: Trace edema of the left ankle. Tenderness with palpation of both the anterior and posterior aspect of the left lateral malleolus. Neurovascular exam distal to the injury intact. No ecchymosis. No wounds or open fracture. SKIN: No rash or erythema of visible areas Initial Vital Signs Initial Vital Signs: Vital Signs Temperature 98.9 F 10/10/23 15:36 Pulse Rate 68 10/10/23 15:36 Respiratory Rate 18 10/10/23 15:36 Blood Pressure 106/58 L 10/10/23 15:36 Pulse Oximetry 98 10/10/23 15:36 Oxygen Delivery Method Room Air 10/10/23 15:36 <Guillermo Gamez DO - Last Filed: 10/10/23 18:33> Initial Vital Signs Initial Vital Signs: Vital Signs Temperature 98.9 F 10/10/23 15:36 Pulse Rate 68 10/10/23 15:36 Respiratory Rate 18 10/10/23 15:36 Blood Pressure 106/58 L 10/10/23 15:36 Pulse Oximetry 98 10/10/23 15:36 Oxygen Delivery Method Room Air 10/10/23 15:36 Course <Sagrario Alvares PA-C - Last Filed: 10/10/23 18:28> Orders Ordered: ED Orders 10/10/23 15:39 XR ankle LT min 3V Stat Discontinued Medications Acetaminophen (Acetaminophen 325 Mg Tablet) 975 mg PO NOW ONE Stop: 10/10/23 15:53 Last Admin: 10/10/23 16:02 Dose: 975 mg Documented By: NATO Vital Signs Vital signs: Vital Signs - 8 hr 10/10/23 15:36 10/10/23 17:20 Temperature 98.9 F Pulse Rate 68 64 Respiratory Rate 18 Blood Pressure 106/58 L 112/57 L Pulse Oximetry 98 98 Oxygen Delivery Method Room Air Room Air <Guillermo Gamez DO - Last Filed: 10/10/23 18:33> Orders Ordered: ED Orders 10/10/23 15:39 XR ankle LT min 3V Stat Discontinued Medications Acetaminophen (Acetaminophen 325 Mg Tablet) 975 mg PO NOW ONE Stop: 10/10/23 15:53 Last Admin: 10/10/23 16:02 Dose: 975 mg Documented By: NATO Vital Signs Vital signs: Vital Signs - 8 hr 10/10/23 15:36 10/10/23 17:20 Temperature 98.9 F Pulse Rate 68 64 Respiratory Rate 18 Blood Pressure 106/58 L 112/57 L Pulse Oximetry 98 98 Oxygen Delivery Method Room Air Room Air MDM - Extremity Injury (Lower) <Sagrario Alvares PA-C - Last Filed: 10/10/23 18:28> Imaging Data Extremity x-ray #1: Radiologist's Impression: PROCEDURE: XR ANKLE LT MIN 3V INDICATIONS: heard pop TECHNIQUE: 3 views of the ankle were acquired. COMPARISON: None. FINDINGS: Bones: No fractures or dislocations. Ankle mortise is normally aligned. No suspicious bony lesions. Soft tissues: No tibiotalar joint effusion. Achilles tendon appears normal. IMPRESSION: No evidence acute bony abnormality. If clinical suspicion and/or symptoms persist, further assessment with repeat plain films, or advanced imaging (e.g., CT, MRI, or bone scan) may be helpful for further assessment. Dictated by: Osiel Sharma M.D. on 10/10/2023 at 16:42 Approved by: Osiel Sharma M.D. on 10/10/2023 at 16:42 [facility] Narrative Medical decision making narrative: Multiple etiologies for patient's symptoms considered including, but not limited to: Left ankle sprain, fracture, dislocation Patient meets criteria for x-rays given posterior lateral malleolus tenderness. X-rays without evidence of fracture. Discussed management of ankle sprain with the patient and her to include rest, ice, elevation, NSAIDs. Patient reports a history of gastritis, discussed use of diclofenac gel instead of ibuprofen. Patient requests crutches because it is painful to walk and crutches provided. Ankle supported by Manny wrap prior to discharge. Patient advised that if she is not improving after 10-14 days of supportive care, she can go to the walk-in clinic or call her PCP for reassessment. Patient's symptoms improved over duration of stay with above-stated therapies. Findings and discharge diagnosis discussed with patient/family followed by verbalization of understanding Return precautions discussed with patient/family whom verbalize understanding of diagnosis and plan Discharge Plan Departure Patient Disposition: Home Clinical Impression: Left ankle sprain Qualifiers: Encounter type: initial encounter Involved ligament of ankle: unspecified ligament Qualified Code(s): S93.402A - Sprain of unspecified ligament of left ankle, initial encounter Instructions: DI for Ankle Sprain Activity Restrictions/Additional Instructions: *You have been diagnosed with ankle sprain. You have been diagnosed with a musculoskeletal injury. You are advised to use R: rest. take it easy and listen to your body! I: ice. apply ice for 20 minutes every 2 hours while awake. Do not put ice directly on the skin. C: compression. Gentle compression with manny wrap or splint will decrease pain and swelling. E: elevation. Keep extremity elevated above the heart whenever possible. Use tylenol or topical NSAID such as Voltaren/diclofenac gel for pain. If your pain is not improving after 10 days, please return to your doctor's office or the walk-in clinic for re-evaluation. You can use crutches for your comfort. When you feel able to start bearing weight on your foot, it is safe to do so. *What to do: *Please continue to take your regular medications as directed. [ ] New medication prescriptions sent to your pharmacy: [ ] [ ] New medication written as a paper prescription [x] No new medications given *Please follow up with your primary care provider in 2-3 days, call for an appointment. Let them know you were seen in the Emergency Department and that we ask that you be seen in follow up. We will electronically transmit a record of today's note if your PCP is in our system *If you do not have a primary care provider please contact the [facility] Resource line at [phone]. They will ask some questions about your medical history and help get you set up with a doctor in the community. *Return to Emergency Department if you should have any new, worsening or concerning symptoms, such as [fever greater than 101 F, shaking chills, worsening pain, persistent vomiting or other concerning symptoms]. Prescriptions: No Action valacyclovir 500 mg tablet 500 mg PO DAILY 177 Days Qty: 180 trazodone 50 mg tablet 75 mg PO BEDTIME lamotrigine 25 mg tablet 25 mg PO BEDTIME Qty: 42 0RF Rx Instructions: Take 1 tab daily x2wk, then 2 tabs daily x2wk lamotrigine 100 mg tablet 100 mg PO DAILY Qty: 90 1RF Rx Instructions: Start after completing 25mg pills per Dr. Benton's instructions fluoxetine 40 mg capsule 40 mg PO QAM 90 Days Qty: 90 1RF propranolol 60 mg capsule,extended release 24 hr 60 mg PO QAM 90 Days Qty: 90 1RF cholecalciferol (vitamin D3) 5,000 UNIT capsule 5,000 iu PO DAILY Qty: 0 norethindrone-e.estradiol-iron [12/14 (28)] 1 mg-20 mcg (21)/75 mg (7) tablet 1 tab PO DAILY Referrals: Melinda Franco DO [Primary Care Provider] - Stand Alone Forms: Patient Portal/API ED Sign-out <Guillermo Gamez DO - Last Filed: 10/10/23 18:33> Cosign ED Attending Cosignature Attestation: Dr Gamez Co-Sign Statement: I was available for consultation during this patient's emergency department visit. This chart is signed by myself for admini strative purposes only. I did not have direct contact with this patient during this visit. They were seen independently by the APC.
== END 2023-10-10 17:21 | disposition home or self-care (01) ==
PROVIDERS: Emergency Provider Physician Assistant; PCP Family Medicine
DX: S93.402A Sprain of unspecified ligament of left ankle, initial encounter (principal); X50.1XXA Overexertion from prolonged static or awkward postures, initial encounter; Y93.01 Activity, walking, marching and hiking; Y92.821 Forest as the place of occurrence of the external cause
CPT/HCPCS: 73610; 99283

== ENCOUNTER → 2023-11-01 18:26 | Outpatient (CLI) | payer OTHER, SELFPAY ==
--- NOTE | 2023-11-01 | DI.MRI.S_ITS ---
PROCEDURE: MR ANKLE LT WO CON INDICATIONS: Other instability, left ankle TECHNIQUE: Noncontrast sagittal T1 spin echo and T2 fast spin echo with fat saturation, axial proton density fast spin echo and T2 fast spin echo with fat saturation, coronal T1 spin echo and T2 fast spin echo with fat saturation through the ankle/hindfoot. COMPARISON: None. FINDINGS: Image quality: Excellent. Bones and joints: No bone marrow contusions or fractures. No hindfoot coalitions. No osteochondral injuries of the talar dome. Small amount of tibiotalar and subtalar joint effusion is seen, no gross loose bodies. Medial structures: The posterior tibialis tendon is mildly thickened with surrounding fluid distending tendon sheath at the level of mid to distal talus and talonavicular joint. flexor digitorum longus, and flexor hallucis longus tendons are intact. The deltoid ligament is thickened with intrasubstance T2 hyperintense signal. The spring ligament is also thickened. Lateral structures: The anterior talofibular ligament is markedly attenuated with intrasubstance T2 hyperintense signal. The calcaneofibular, and posterior talofibular ligaments appear thickened with intrasubstance T2 hyperintense signal. More superiorly, the anterior and posterior tibiofibular ligaments appear mildly thickened with intrasubstance T2 hyperintense signal. The tibiofibular syndesmosis is normal in width at 2 mm or less. The peroneus longus and brevis tendons are mildly thickened with small amount of fluid distending tendon sheath at the level of mid to distal calcaneus and calcaneocuboid joint. Adjacent bony peroneal tubercle and retrotrochlear prominence are normal in size. The sinus tarsi demonstrates normal fatty signal, without edema, fibrosis, or cyst formation. Visualized sinus tarsi components (cervical ligament, interosseous talocalcaneal ligament, roots of the inferior extensor retinaculum) appear normal. The calcaneonavicular and calcaneocuboid components of the bifurcate ligament appear intact. The dorsal calcaneocuboid ligament appears intact. Anterior structures: The tibialis anterior, extensor hallucis longus, and extensor digitorum longus tendons appear intact. The dorsal talonavicular ligament appears intact. Posterior and plantar structures: Achilles tendon is intact. Medial and lateral bands of the plantar fascia are of normal thickness. No abductor digiti quinti muscle atrophy to suggest Lyn neuropathy. IMPRESSION: 1. No marrow edema. No ankle fracture or dislocation. No osteochondral injuries of talar dome. Small to moderate joint effusion, no gross loose bodies. 2. Low-grade tenosynovitis involving posterior tibialis tendon at the level of mid to distal talus and talonavicular joint. 3. Low-grade tenosynovitis involving peroneus tendon at the level of mid to distal calcaneus and calcaneocuboid joint. 4. Low to moderate grade deltoid ligament sprain/partial-thickness tear. Low-grade spring ligament sprain. 5. Moderate grade partial-thickness tear involving anterior talofibular ligament. Low-grade sprain/intrasubstance partial-thickness tear involving rest of the lateral ankle ligaments. Dictated by: Claus Howell M.D. on 11/04/2023 at 10:39 Approved by: Claus Howell M.D. on 11/04/2023 at 10:46
== END ==
PROVIDERS: PCP Family Medicine; Referring Provider Family Medicine; Visit Provider Family Medicine
DX: S93.422A Sprain of deltoid ligament of left ankle, initial encounter (principal); S93.492A Sprain of other ligament of left ankle, initial encounter; M25.372 Other instability, left ankle; M65.872 Other synovitis and tenosynovitis, left ankle and foot; M25.472 Effusion, left ankle
CPT/HCPCS: 73721

== ENCOUNTER 2023-11-05 02:24 | Emergency (ER) | payer OTHER, SELFPAY ==
[2023-11-05] VITALS (27 sets, daily range): BP systolic 81–109; BP diastolic 50–72; PULSE 84–168; RESP 17–29; TEMP 35.6; O2SAT 98–100; BMI 25.7
[2023-11-05] MEDS: ADENOSINE 6 MG/2 ML VIAL IV (02:45)
--- NOTE | 2023-11-05 02:46 | PC.NURSE ---
adenosine given pt converted to SR
--- NOTE | 2023-11-05 02:48 | ED_ITS ---
HPI - Arrhythmia/Palpitations General Chief Complaint: Arrhythmia/Palpitations Stated Complaint: trouble breathing, high heartrate Time Seen by Provider: 11/05/23 02:32 Source: patient Mode of arrival: Ambulatory History of Present Illness HPI narrative: A 53-year-old female with a history of supraventricular tachycardia presenting with a rapid heart rate chest pain and shortness of breath. Rapid heart rate began about 12 hours ago. Has had some chest tightness recently tonight. She has had SVT before there was an emergency department visit here in January of 2020, in October of 2022 she had a negative stress test, I reviewed notes from both of those events. She does take a beta-rachael as needed and took extra doses that today without relief. She is not had fevers, she is not using energy drinks or other stimulants. Related Data Home Medications Medication Instructions Recorded Confirmed cholecalciferol (vitamin D3) 125 5,000 iu PO DAILY ##0 02/25/18 07/03/22 mcg (5,000 unit) capsule valacyclovir 500 mg tablet 500 mg PO DAILY 177 days #180 tabs 12/30/18 07/03/22 norethindrone 1 mg-ethinyl 1 tab PO DAILY 12/24/19 07/03/22 estradiol 20 mcg (21)-iron 75 mg (7) tablet (12/14 (28)) trazodone 50 mg tablet 75 mg PO BEDTIME 07/03/22 07/03/22 Previous Rx's Medication Instructions Recorded fluoxetine 40 mg capsule 40 mg PO QAM 90 days #90 caps 07/03/22 lamotrigine 100 mg tablet 100 mg PO DAILY #90 tabs 07/03/22 lamotrigine 25 mg tablet 25 mg PO BEDTIME #42 tabs 07/03/22 propranolol 60 mg capsule,24 60 mg PO QAM 90 days #90 caps 07/03/22 hr,extended release Allergies Allergy/AdvReac Type Severity Reaction Status Date / Time cephalexin [From KEFLEX] Allergy Intermediate RED SPOTS Verified 02/20/22 14:53 ON FACE Patient History Social History Smoking Status: Never smoker Smoking Status: Never smoker Exam Initial Vital Signs Initial Vital Signs: Vital Signs Temperature 96.1 F L 11/05/23 02:32 Pulse Rate 168 H 11/05/23 02:32 Respiratory Rate 18 11/05/23 02:32 Blood Pressure 99/66 11/05/23 02:32 Pulse Oximetry 100 11/05/23 02:32 Oxygen Delivery Method Room Air 11/05/23 02:32 Const General: No acute distress Neck Neck: supple and No JVD Resp Effort & Inspection: normal respiratory effort Auscultation: clear to auscultation bilaterally Cardio Rate: tachycardic Rhythm: regular rhythm Heart Sounds: S1 normal and S2 normal Skin General: dry skin and warm Neuro General: patient awake and patient oriented x3 Psych Appearance: grossly normal and well kempt Mood: congruent mood Course Orders Ordered: ED Orders 11/05/23 02:38 EKG-12 Lead Stat 11/05/23 02:39 Complete Blood Count AUTO DIFF Stat Comprehensive Metabolic Panel Stat Magnesium Stat 11/05/23 02:41 EKG-12 Lead Stat 11/05/23 03:55 Chest [XR chest 1V] Stat Lactate (Lactic Acid) Stat Troponin I Stat 11/05/23 03:56 UA Complete [Urinalysis and Microscopic] Stat EKG-12 Lead Stat Discontinued Medications Adenosine (Adenosine 6 Mg/2 Ml Vial) 6 mg IV NOW ONE Stop: 11/05/23 02:40 Last Admin: 11/05/23 02:45 Dose: 6 mg Documented By: KH Sodium Chloride (Normal Saline 0.9%) 1,000 mls @ 1,000 mls/hr IV BOLUS ONE Stop: 11/05/23 04:07 Last Admin: 11/05/23 03:05 Dose: 1,000 mls/hr Documented By: AP Reevaluation(s) Reevaluation #1: At 3:45 p.m., the patient remains in normal sinus rhythm she is however hypotensive with a systolic pressure in the low 80s. She reports having a little bit of chest tightness. She also reported that prior to coming in she taking 10 mg of short-acting propranolol in addition to her baseline long-acting propranolol, this medication was prescribed to her to use as needed if having SVT. She has already received a L of saline. Given her persistent hypotension and now having chest pressure I am going to initiate an ischemic workup get a lactic acid and get a chest x-ray and urinalysis to evaluate for possible sources of infection. I queried the patient regarding possible infectious symptoms, she is not had fevers dysuria or cough. Reevaluation #2: At 4:45 a.m, blood pressures have improved although she still only about 90 systolic. She reports a little bit of nausea not having chest pain not having shortness of breath. Repeat EKG was sinus rhythm at 84 without ischemic changes. Troponin is mildly elevated, I think this is most consistent with a troponin leak from her prolonged tachycardia. She has a normal lactic acid, chest x-ray shows no acute disease, urinalysis does not show evidence of infection. I discussed the findings with patient including that her elevated troponin is almost certainly a troponin leak related to prolonged tachycardia. We did offer to work this up further however I think it is unlikely that this is an acute coronary syndrome, the patient would prefer to go home at this point. She is advised to return immediately for chest pain shortness of breath or other acute symptoms. Vital Signs Vital signs: Vital Signs - 8 hr 11/05/23 02:32 11/05/23 02:40 11/05/23 02:47 Temperature 96.1 F L Pulse Rate 168 H 160 H Respiratory Rate 18 25 H Blood Pressure 99/66 96/56 L Pulse Oximetry 100 100 Oxygen Delivery Method Room Air 11/05/23 02:47 11/05/23 03:00 11/05/23 03:00 Temperature Pulse Rate 92 H 91 H Respiratory Rate 28 H 26 H Blood Pressure 88/54 L Pulse Oximetry 100 99 Oxygen Delivery Method 11/05/23 03:05 11/05/23 03:05 11/05/23 03:06 Temperature Pulse Rate 88 89 Respiratory Rate 23 24 Blood Pressure 84/54 L Pulse Oximetry 98 98 Oxygen Delivery Method 11/05/23 03:06 11/05/23 03:07 11/05/23 03:07 Temperature Pulse Rate 90 Respiratory Rate 23 Blood Pressure 82/53 L 81/51 L Pulse Oximetry 98 Oxygen Delivery Method 11/05/23 03:15 11/05/23 03:15 11/05/23 03:20 Temperature Pulse Rate 91 H Respiratory Rate 20 Blood Pressure 84/53 L 81/52 L Pulse Oximetry 99 Oxygen Delivery Method 11/05/23 03:20 11/05/23 03:25 11/05/23 03:25 Temperature Pulse Rate 88 87 Respiratory Rate 22 18 Blood Pressure 82/50 L Pulse Oximetry 100 99 Oxygen Delivery Method 11/05/23 03:30 11/05/23 03:30 11/05/23 03:35 Temperature Pulse Rate 87 Respiratory Rate 21 Blood Pressure 94/52 L 82/53 L Pulse Oximetry 100 Oxygen Delivery Method 11/05/23 03:35 11/05/23 03:40 11/05/23 03:40 Temperature Pulse Rate 87 87 Respiratory Rate 20 18 Blood Pressure 81/53 L Pulse Oximetry 99 100 Oxygen Delivery Method 11/05/23 03:45 11/05/23 03:45 11/05/23 03:50 Temperature Pulse Rate 88 Respiratory Rate 18 Blood Pressure 84/53 L 83/51 L Pulse Oximetry 99 Oxygen Delivery Method 11/05/23 03:50 11/05/23 03:55 11/05/23 03:55 Temperature Pulse Rate 86 89 Respiratory Rate 19 20 Blood Pressure 88/51 L Pulse Oximetry 100 100 Oxygen Delivery Method 11/05/23 04:00 11/05/23 04:05 11/05/23 04:05 Temperature Pulse Rate 94 H 90 Respiratory Rate 17 20 Blood Pressure 109/72 Pulse Oximetry Oxygen Delivery Method 11/05/23 04:10 11/05/23 04:10 Temperature Pulse Rate 84 Respiratory Rate 21 Blood Pressure 102/58 L Pulse Oximetry Oxygen Delivery Method MDM - Arrhythmia/Palpitations Medical Records Medical records narrative: Reviewed stress test from October of 2022 which was negative reviewed emergency department visit from January of 2020 when she presented with SVT Lab Data Lab results narrative: Mild leukocytosis on CBC, chemistries are unremarkable, she does have a minimally elevated troponin, lactic acid is normal urinalysis is unremarkable 11/05/23 02:39 11/05/23 02:39 Labs: Lab Results 11/05/23 11/05/23 Range/Units 02:39 04:16 WBC 13.6 H (4.5-11.0) X10^3/uL RBC 4.47 (4.0-5.2) X10^6/uL Hgb 14.3 (12.0-16.0) g/dL Hct 41.5 (36-46) % MCV 92.8 (80-100) fL MCH 31.9 (26-34) PG MCHC 34.4 (30-36) % RDW 13.0 (11.6-14.8) % Plt Count 294 (150-400) X10^3/uL Neut % (Auto) 56.4 (50-75) % Lymph % (Auto) 34.0 (25-40) % [place] % (Auto) 7.1 (3-14) % Eos % (Auto) 2.0 (2-4) % Baso % (Auto) 0.5 (0-2) % Neut # (Auto) 7700 H (4884-6828) /uL Lymph # (Auto) 4600 H (6913-7626) /uL [place] # (Auto) 1000 H (0-900) /uL Eos # (Auto) 300 (0-450) /uL Baso # (Auto) 100 (0-100) /uL Sodium 137 (137-145) mmol/L Potassium 3.8 (3.4-5.1) mmol/L Chloride 105 (98-107) mmol/L Carbon Dioxide 26 (22-32) mmol/L BUN 13 (7-17) mg/dL Creatinine 0.90 (0.52-1.04) mg/dL Estimated GFR > 60 (>60) mL/min BUN/Creatinine Ratio 14.4 (6-22) Glucose 99 (70-100) mg/dL Lactate 1.4 (0.7-2.1) mmol/L Calcium 9.3 (8.4-10.2) mg/dL Magnesium 2.0 (1.6-2.3) mg/dL Total Bilirubin 0.4 (0.2-1.3) mg/dL AST 46 H (14-36) IU/L ALT 19 (<35) IU/L Alkaline Phosphatase 49 (38-126) U/L Troponin I 0.042 H (0.01-0.034) ng/mL Total Protein 7.2 (6.3-8.2) g/dL Albumin 3.8 (3.5-5.0) g/dL Globulin 3.4 (1.7-4.1) g/dL Albumin/Globulin Ratio 1.1 (1.0-2.8) Urine Color Yellow Urine Appearance Clear Urine pH 5.5 (4.5-8.0) Ur Specific [place] 1.010 (1.000-1.035) Urine Protein Negative (Negative) Urine Glucose (UA) Negative (Negative) g/dL Urine Ketones Negative (NEGATIVE) Urine Occult Blood Negative (Negative) Urine Nitrate Negative (Negative) Urine Bilirubin Negative (NEGATIVE) Urine Urobilinogen 0.2 (0.2) E.U./dL Ur Leukocyte Esterase Negative (NEGATIVE) Urine RBC None seen (0-5/HPF) Urine WBC None seen (0-5/HPF) Ur Squamous Epith Cells 0-1 /hpf (0-5/HPF) Urine Bacteria Occasional (0-1) (None) Ur Culture Indicated? Cult not indicated Urine Dip Bedside Urine Glucose Negative Bedside Urine Bilirubin - Negative Bedside Urine Ketone - Negative Urine Specific [place] 1.015 Bedside Urine Occult Blood - Negative Bedside Urine pH 6.0 Bedside Urine Protein - Negative Bedside Urine Urobilinogen - Negative Bedside Urine Nitrite - Negative Bedside Urine Leukocytes - Negative Esterase Imaging Data Chest x-ray: My Impression: Independent review, normal chest x-ray Radiologist's Impresson: ?No acute cardiopulmonary abnormality is identified? ECG Data Interpretation: ECG shows a regular narrow complex tachycardia no P waves visible this appears to be SVT rate is 160. Repeat EKG after cardioversion shows normal sinus rhythm at [address] segment changes. Repeat EKG at 4:10 a.m. shows sinus rhythm at 84 normal intervals no acute ST segment changes Treatment and disposition Shared decision making:: Discussed minimally elevated troponin in the setting of SVT MDM Narrative Medical decision making narrative: 53-year-old female with a history of SVC presenting with an episode of supraventricular tachycardia. She was converted with 6 mg of adenosine. Initial labs were reassuring however the patient was noted to be hypotensive following cardioversion. This may be because she took an extra dose of propranolol 10 mg while she was in SVT. She got a L of saline but was still hypotensive and had some vague symptoms of nausea. A 3rd EKG was unremarkable, troponin was minimally elevated which is not surprising and this was attributed to tachycardia. Lactic acid was normal, there was no evidence of infection on exam, urinalysis or chest x-ray. Patient's blood pressure improved, her minimal troponin elevation was attributed to tachycardia and she was discharged. Discharge Plan Departure Patient Disposition: Home Clinical Impression: PSVT (paroxysmal supraventricular tachycardia) Instructions: DI for Paroxysmal Supraventricular Tachycardia Activity Restrictions/Additional Instructions: Today, we treated an episode of supraventricular tachycardia. You can continue previous home medications. If you are having recurrent symptoms recheck in the emergency department. Additionally, you could contact [facility] cardiology Dr. Robe Martínez is the business line manager in that group, they may be able to offer treatment that would prevent you from having this. If you are having fevers, generalized weakness, chest pain or increasing shortness of breath recheck in the emergency department. Prescriptions: No Action valacyclovir 500 mg tablet 500 mg PO DAILY 177 Days Qty: 180 trazodone 50 mg tablet 75 mg PO BEDTIME lamotrigine 25 mg tablet 25 mg PO BEDTIME Qty: 42 0RF Rx Instructions: Take 1 tab daily x2wk, then 2 tabs daily x2wk lamotrigine 100 mg tablet 100 mg PO DAILY Qty: 90 1RF Rx Instructions: Start after completing 25mg pills per Dr. Benton's instructions fluoxetine 40 mg capsule 40 mg PO QAM 90 Days Qty: 90 1RF propranolol 60 mg capsule,extended release 24 hr 60 mg PO QAM 90 Days Qty: 90 1RF cholecalciferol (vitamin D3) 5,000 UNIT capsule 5,000 iu PO DAILY Qty: 0 norethindrone-e.estradiol-iron [12/14 (28)] 1 mg-20 mcg (21)/75 mg (7) tablet 1 tab PO DAILY Referrals: Melinda Franco DO [Primary Care Provider] - Stand Alone Forms: Patient Portal/API, Work Release Note
[2023-11-05] MEDS: SODIUM CHLORIDE 0.9% 1,000 ML 1000 ML IV (03:05)
[2023-11-05 03:12] LABS: Add Manual Diff / Slide Review NO; Basophils Absolute Auto 100 /uL (0-100); Basophils Percent Auto 0.5 % (0-2); Eosinophils Absolute Auto 300 /uL (0-450); Hematocrit 41.5 % (36-46); Hemoglobin 14.3 g/dL (12.0-16.0); Lymphocytes Absolute Auto 4600 /uL (1100-4500); Mean Corpuscular HGB Conc 34.4 % (30-36); Mean Corpuscular Hemoglobin 31.9 PG (26-34); Mean Corpuscular Volume 92.8 fL (80-100); Monocytes Absolute Auto 1000 /uL (0-900); Monocytes Percent Auto 7.1 % (3-14); Neutrophils Absolute Auto 7700 /uL (1500-7000); Neutrophils Percent Auto 56.4 % (50-75); Platelet Count 294 X10^3/uL (150-400); Red Blood Cell Count 4.47 X10^6/uL (4.0-5.2); White Blood Cell Count 13.6 X10^3/uL (4.5-11.0)
--- NOTE | 2023-11-05 03:15 | PC.NURSE ---
Her b/p dropped into the 80's systolic and DR Acosta was notified and new med order was received and carried out.
[2023-11-05 03:34] LABS: Alanine Aminotransferase 19 IU/L (<35); Albumin 3.8 g/dL (3.5-5.0); Albumin Globulin Ratio 1.1 (1.0-2.8); Alkaline Phosphatase 49 U/L (38-126); Aspartate Aminotransferase 46 IU/L (14-36); BUN Creatinine Ratio 14.4 (6-22); Bilirubin Total 0.4 mg/dL (0.2-1.3); Blood Urea Nitrogen 13 mg/dL (7-17); Calcium 9.3 mg/dL (8.4-10.2); Carbon Dioxide 26 mmol/L (22-32); Chloride 105 mmol/L (98-107); Estimated Glomerular Filt Rate > 60 mL/min (>60); Globulin 3.4 g/dL (1.7-4.1); Glucose 99 mg/dL (70-100); HEMOLYSIS 18 (0-50); Potassium 3.8 mmol/L (3.4-5.1); Sodium 137 mmol/L (137-145); Total Protein 7.2 g/dL (6.3-8.2)
--- NOTE | 2023-11-05 03:55 | DI.RAD.S_ITS ---
PROCEDURE: XR CHEST 1V INDICATIONS: hypotension TECHNIQUE: One view of the chest was acquired. COMPARISON: [facility], , CHEST 1 VIEW, 12/13/2016, 16:34. FINDINGS: Surgical changes and devices: None. Lungs and pleura: Lungs are clear. No pleural effusions or pneumothorax. Mediastinum: Heart size is normal Bones and chest wall: No suspicious bony lesions. Overlying soft tissues appear unremarkable. IMPRESSION: No acute radiographic abnormality. Agree with prelim report. Dictated by: Ankush Thompson M.D. on 11/05/2023 at 8:30 Approved by: Ankush Thompson M.D. on 11/05/2023 at 8:31
[2023-11-05 04:22] LABS: Lactate (Lactic Acid) 1.4 mmol/L (0.7-2.1)
[2023-11-05 04:26] LABS: Appearance Urine UA CLEAR; Bilirubin Urine UA NEGATIVE (NEGATIVE); Color Urine UA YELLOW; Glucose Urine UA NEGATIVE (Negative); Ketones Urine UA NEGATIVE (NEGATIVE); Leukocyte Esterase Urine UA NEGATIVE (NEGATIVE); Nitrite Urine UA NEGATIVE (Negative); Occult Blood Urine UA NEGATIVE (Negative); Protein Urine UA NEGATIVE (Negative); Urobilinogen Urine UA 0.2 E.U./dL (0.2)
[2023-11-05 04:31] LABS: pH Urine UA 5.5 (4.5-8.0)
[2023-11-05 04:34] LABS: Troponin I 0.042 ng/mL (0.01-0.034)
[2023-11-05 04:39] LABS: Bacteria Urine Occasional (0-1); Culture Indicated Urine Cult Not Indicated; RBC Urine None Seen (0-5/HPF); Squamous Epithelial Cell Urine 0-1 /HPF (0-5/HPF); WBC Urine None Seen (0-5/HPF)
== END 2023-11-05 04:57 | disposition home or self-care (01) ==
PROVIDERS: Emergency Provider Emergency Medicine; PCP Family Medicine
DX: I47.19 Other supraventricular tachycardia (principal)
CPT/HCPCS: 36415; 71045; 80053; 81001; 81003; 83605; 83735; 84484; 85025; 93005; 93010; 96361; 96374; 99284; J0153

== ENCOUNTER 2024-01-07 17:06 | Emergency (ER) | payer OTHER, SELFPAY ==
[2024-01-07] VITALS (12 sets, daily range): BP systolic 90–122; BP diastolic 46–71; PULSE 82–169; RESP 12–25; TEMP 36.6; O2SAT 96–100; BMI 25.7
--- NOTE | 2024-01-07 17:46 | ED.ARRPALP ---
HPI - Arrhythmia/Palpitations General Chief Complaint: Arrhythmia/Palpitations Stated Complaint: heart is racing Time Seen by Provider: 01/07/24 17:37 History of Present Illness HPI narrative: This is 53-year-old female with a history of PSVT and multiple visits for the same presenting with an episode of rapid heart rate. She has not having chest pain or shortness of breath. Symptoms have been present for about 3 hours. Feels a little lightheaded. No alcohol use no recreational drug use no fevers no nausea or vomiting. No recent changes in her medications. Patient was scheduled to be seen by Cardiology at [facility] and will see electrophysiology. Related Data Home Medications Medication Instructions Recorded Confirmed cholecalciferol (vitamin D3) 125 5,000 iu PO DAILY ##0 02/25/18 07/03/22 mcg (5,000 unit) capsule valacyclovir 500 mg tablet 500 mg PO DAILY 177 days #180 tabs 12/30/18 07/03/22 norethindrone 1 mg-ethinyl 1 tab PO DAILY 12/24/19 07/03/22 estradiol 20 mcg (21)-iron 75 mg (7) tablet (June12/14 (28)) trazodone 50 mg tablet 75 mg PO BEDTIME 07/03/22 07/03/22 Previous Rx's Medication Instructions Recorded fluoxetine 40 mg capsule 40 mg PO QAM 90 days #90 caps 07/03/22 lamotrigine 100 mg tablet 100 mg PO DAILY #90 tabs 07/03/22 lamotrigine 25 mg tablet 25 mg PO BEDTIME #42 tabs 07/03/22 propranolol 60 mg capsule,24 60 mg PO QAM 90 days #90 caps 07/03/22 hr,extended release Allergies Allergy/AdvReac Type Severity Reaction Status Date / Time cephalexin [From KEFLEX] Allergy Intermediate RED SPOTS Verified 01/07/24 17:21 ON FACE Patient History Social History Smoking Status: Never smoker Smoking Status: Never smoker alcohol intake frequency: 0-2 drinks per day Substance Use Type: does not use Exam Initial Vital Signs Initial Vital Signs: Vital Signs Temperature 98 F 01/07/24 17:15 Pulse Rate 158 H 01/07/24 17:15 Respiratory Rate 12 01/07/24 17:15 Blood Pressure 122/56 L 01/07/24 17:15 Pulse Oximetry 99 01/07/24 17:15 Oxygen Delivery Method Room Air 01/07/24 17:15 Alert no acute distress HENUT Head: normocephalic and atraumatic Resp Effort & Inspection: normal respiratory effort Auscultation: clear to auscultation bilaterally Cardio Other: Regular rhythm and rate quite tachycardic Skin Other: Warm and dry Neuro Other: Alert and oriented no neuro deficits Course Orders Ordered: ED Orders 01/07/24 17:27 EKG-12 Lead Stat 01/07/24 18:20 EKG-12 Lead Routine Sodium Chloride (Normal Saline 0.9%) 1,000 mls @ 1,000 mls/hr IV BOLUS ONE Stop: 01/07/24 18:44 Last Admin: 01/07/24 18:09 Dose: 1,000 mls/hr Discontinued Medications Adenosine (Adenosine 6 Mg/2 Ml Vial) 6 mg IV NOW ONE Stop: 01/07/24 17:46 Last Admin: 01/07/24 18:09 Dose: 6 mg Vital Signs Vital signs: Vital Signs - 8 hr 01/07/24 17:15 01/07/24 17:37 01/07/24 17:41 Temperature 98 F Pulse Rate 158 H 156 H 156 H Respiratory Rate 12 20 23 Blood Pressure 122/56 L Pulse Oximetry 99 97 98 Oxygen Delivery Method Room Air 01/07/24 17:41 Temperature Pulse Rate Respiratory Rate Blood Pressure 96/59 L Pulse Oximetry Oxygen Delivery Method MDM - Arrhythmia/Palpitations ECG Data Interpretation: ECG shows a regular narrow complex tachycardia at 158 consistent with SVT Post adenosine ECG shows normal sinus rhythm at 79 septal Q-waves no acute ST segment changes MDM Narrative Medical decision making narrative: 53-year-old female with a history of PSVT presenting with an episode of SVT. She was cardioverted out with 6 mg of adenosine. She is been feeling well previously, I do not think labs would likely be beneficial today she is discharged after conversion with adenosine. Discharge Plan Departure Patient Disposition: Home Clinical Impression: PSVT (paroxysmal supraventricular tachycardia) Activity Restrictions/Additional Instructions: Continue previous home medications, follow up with Cardiology as scheduled, return to the emergency department as needed for recurrent symptoms. Prescriptions: No Action valacyclovir 500 mg tablet 500 mg PO DAILY 177 Days Qty: 180 trazodone 50 mg tablet 75 mg PO BEDTIME lamotrigine 25 mg tablet 25 mg PO BEDTIME Qty: 42 0RF Rx Instructions: Take 1 tab daily x2wk, then 2 tabs daily x2wk lamotrigine 100 mg tablet 100 mg PO DAILY Qty: 90 1RF Rx Instructions: Start after completing 25mg pills per Dr. Benton's instructions fluoxetine 40 mg capsule 40 mg PO QAM 90 Days Qty: 90 1RF propranolol 60 mg capsule,extended release 24 hr 60 mg PO QAM 90 Days Qty: 90 1RF cholecalciferol (vitamin D3) 5,000 UNIT capsule 5,000 iu PO DAILY Qty: 0 norethindrone-e.estradiol-iron [12/14 (28)] 1 mg-20 mcg (21)/75 mg (7) tablet 1 tab PO DAILY Referrals: Melinda Franco DO [Primary Care Provider] - Stand Alone Forms: Patient Portal/API
[2024-01-07] MEDS: ADENOSINE 6 MG/2 ML VIAL IV (18:09)
[2024-01-07] MEDS: SODIUM CHLORIDE 0.9% 1,000 ML 1000 ML IV (18:09)
== END 2024-01-07 18:40 | disposition home or self-care (01) ==
PROVIDERS: Emergency Provider Emergency Medicine; PCP Family Medicine
DX: I47.10 Supraventricular tachycardia, unspecified (principal)
CPT/HCPCS: 36415; 93005; 93010; 96374; 99283; 99284; J0153

== ENCOUNTER 2024-07-10 16:24 | Emergency (ER) | payer OTHER, SELFPAY ==
[2024-07-10 16:34] VITALS: BP 122/61; PULSE 65; RESP 16; TEMP 37.3; O2SAT 99; BMI 24.9
--- NOTE | 2024-07-10 18:30 | ED.NECK ---
HPI - Neck Pain/Injury General Chief Complaint: Neck Pain/Injury Stated Complaint: Neck/R Shoulder Pain Mode of arrival: Ambulatory History of Present Illness HPI Narrative: Patient left without being seen by provider Related Data Home Medications Medication Instructions Recorded Confirmed cholecalciferol (vitamin D3) 125 5,000 iu PO DAILY ##0 02/25/18 07/03/22 mcg (5,000 unit) capsule valacyclovir 500 mg tablet 500 mg PO DAILY 177 days #180 tabs 12/30/18 07/03/22 norethindrone 1 mg-ethinyl 1 tab PO DAILY 12/24/19 07/03/22 estradiol 20 mcg (21)-iron 75 mg (7) tablet (12/14 (28)) trazodone 50 mg tablet 75 mg PO BEDTIME 07/03/22 07/03/22 Previous Rx's Medication Instructions Recorded fluoxetine 40 mg capsule 40 mg PO QAM 90 days #90 caps 07/03/22 lamotrigine 100 mg tablet 100 mg PO DAILY #90 tabs 07/03/22 lamotrigine 25 mg tablet 25 mg PO BEDTIME #42 tabs 07/03/22 propranolol 60 mg capsule,24 60 mg PO QAM 90 days #90 caps 07/03/22 hr,extended release Allergies Allergy/AdvReac Type Severity Reaction Status Date / Time cephalexin [From KEFLEX] Allergy Intermediate RED SPOTS Verified 07/10/24 16:38 ON FACE Patient History Social History Smoking Status: Never smoker Smoking Status: Never smoker alcohol intake frequency: 0-2 drinks per day Substance Use Type: does not use Exam Initial Vital Signs Initial Vital Signs: Vital Signs Temperature 99.1 F 07/10/24 16:34 Pulse Rate 65 07/10/24 16:34 Respiratory Rate 16 07/10/24 16:34 Blood Pressure 122/61 07/10/24 16:34 Pulse Oximetry 99 07/10/24 16:34 Oxygen Delivery Method Room Air 07/10/24 16:34 Course Vital Signs Vital signs: Vital Signs - 8 hr 07/10/24 16:34 Temperature 99.1 F Pulse Rate 65 Respiratory Rate 16 Blood Pressure 122/61 Pulse Oximetry 99 Oxygen Delivery Method Room Air Discharge Plan Departure Patient Disposition: Left Without Being Seen Clinical Impression: Patient left after triage Prescriptions: No Action valacyclovir 500 mg tablet 500 mg PO DAILY 177 Days Qty: 180 trazodone 50 mg tablet 75 mg PO BEDTIME lamotrigine 25 mg tablet 25 mg PO BEDTIME Qty: 42 0RF Rx Instructions: Take 1 tab daily x2wk, then 2 tabs daily x2wk lamotrigine 100 mg tablet 100 mg PO DAILY Qty: 90 1RF Rx Instructions: Start after completing 25mg pills per Dr. Benton's instructions fluoxetine 40 mg capsule 40 mg PO QAM 90 Days Qty: 90 1RF propranolol 60 mg capsule,extended release 24 hr 60 mg PO QAM 90 Days Qty: 90 1RF cholecalciferol (vitamin D3) 5,000 UNIT capsule 5,000 iu PO DAILY Qty: 0 norethindrone-e.estradiol-iron [April 12/14 (28)] 1 mg-20 mcg (21)/75 mg (7) tablet 1 tab PO DAILY
== END 2024-07-10 17:27 | disposition left against medical advice (07) ==
PROVIDERS: Emergency Provider Emergency Medicine; PCP Family Medicine
CPT/HCPCS: 99281

== ENCOUNTER → 2024-08-01 15:25 | Outpatient (CLI) | payer OTHER, SELFPAY ==
--- NOTE | 2024-08-01 15:26 | DI.MRI.S_ITS ---
PROCEDURE: MR CERVICAL SPINE WO CON INDICATIONS: WORSENING SPINAL STENOSIS TECHNIQUE: Noncontrast sagittal T1 spin echo and T2 fast spin echo, sagittal STIR, foraminal oblique sagittal T2 fast spin echo, and axial gradient echo or T2 fast spin echo through the cervical spine. COMPARISON: [facility], MR, MR CERVICAL SPINE WO CON, 08/08/2023, 17:34. FINDINGS: Image quality: Diagnostic Alignment and Curvature: There is trace retrolisthesis of C4 on C5. Bone Marrow: No acute fracture. Multilevel disc desiccation Spinal Cord: Visualized spinal cord has normal size and signal. No cerebellar tonsillar herniation. Paraspinous Soft Tissues: No paravertebral masses. Prevertebral soft tissues are normal in thickness. No pathologic prevertebral soft tissue thickening. C2-C3: No stenosis C3-C4: Central disc protrusion, in close proximity to the ventral cord. Small disc diffuse bulge. Mild central narrowing. C4-C5: Diffuse disc bulge. Uncovertebral and facet arthropathy. Mild central narrowing. Moderate right and gzgj-kj-indzhzmk left neural foraminal narrowing C5-C6: Central protrusion diffuse disc bulge. Uncovertebral and facet arthropathy. Euvz-np-qgsdhaah central narrowing. Moderate to severe right and moderate left neural foraminal narrowing C6-C7: Diffuse disc bulge. Annular fissure. Zydm-vj-ltsidnwm central narrowing. Uncovertebral and facet arthropathy. Moderate right and left neural foraminal narrowing C7-T1: Uncovertebral and facet arthropathy. No stenosis. IMPRESSION: Overall moderate degree of spondylosis as described above, particularly with areas of neural foraminal stenoses worst at C4-C5 and C5-C6. Compared to 2022, findings are not significantly changed. Dictated by: Ankush Thompson M.D. on 08/03/2024 at 12:20 Approved by: Ankush Thompson M.D. on 08/03/2024 at 12:26
== END ==
LOC: MRI 15:25
PROVIDERS: PCP Family Medicine; Referring Provider Family Medicine; Visit Provider Family Medicine
DX: M48.02 Spinal stenosis, cervical region (principal); R25.2 Cramp and spasm; M47.22 Other spondylosis with radiculopathy, cervical region
CPT/HCPCS: 72141

== ENCOUNTER → 2024-08-29 10:49 | Outpatient (CLI) | payer OTHER, SELFPAY ==
--- NOTE | 2024-08-29 10:49 | DI.MG.S_ITS ---
BILATERAL DIGITAL SCREENING MAMMOGRAM 3D/2D WITH CAD: 08/29/2024 CLINICAL: Routine screening. Comparison is made to exams dated: 06/19/2022 mammogram, 06/25/2023 mammogram, and 05/03/2021 mammogram - [facility]. The breasts are heterogeneously dense, which may obscure small masses (category c / 51-75% glandular tissue). Current study was also evaluated with a Computer Aided Detection (CAD) system. No significant masses, calcifications, or other findings are seen in either breast. There has been no significant interval change. IMPRESSION: NEGATIVE There is no mammographic evidence of malignancy. A 1 year screening mammogram is recommended. Based on the Tyrer Cuzick model (a risk assessment model) the patient's lifetime risk is 12.7% and her 10 year risk is 3.5%. According to the ACR, ACS, and NCCN guidelines, an annual breast MRI exam along with mammogram is recommended if the patient's lifetime risk is 20% or greater. This exam was interpreted at Station ID: [id number]. NOTE: For mammograms, a report in lay terms will be sent to the patient. Approximately 15% of breast malignancies will not be visualized mammographically. In the management of a palpable breast mass, a negative mammogram must not discourage biopsy of a clinically suspicious lesion. Electronically Signed By: Sebastian garcía/cassie:08/29/2024 14:25:19 letter sent: Normal Exam ACR BI-RADS Category 1: Negative
== END ==
PROVIDERS: PCP Family Medicine; Referring Provider Family Medicine; Visit Provider Family Medicine
DX: Z12.31 Encounter for screening mammogram for malignant neoplasm of breast (principal); R92.333 Mammographic heterogeneous density, bilateral breasts
CPT/HCPCS: 77063; 77067

== ENCOUNTER → 2025-05-26 08:19 | Outpatient (CLI) | payer OTHER, SELFPAY ==
--- NOTE | 2025-05-26 08:21 | DI.US.S_ITS ---
PROCEDURE: US PELVIC COMPLETE INDICATIONS: POSTMENOPAUSAL BLEEDING TECHNIQUE: Real-time scanning was performed of the pelvic organs, with image documentation. Additional endovaginal scanning was necessary due to incomplete visualization of the adnexal and endometrial structures by transabdominal scanning. COMPARISON: None. FINDINGS: Uterus: Uterus is retroverted and normal in size at 6.4 x 3.8 x 3.9 cm. The myometrium is heterogeneous. The endometrium measures 3.9 mm combined thickness. Possible polyp within the endometrium measuring 0.9 x 0.7 x 1.0 cm with some vascularity. Ovaries: The right ovary measures 1.0 x 1.3 x 1.2 cm, with a calculated ovarian volume of 0.8 cc. The right ovary is normal in appearance. The left ovary is not seen. Other: No pathologic free abdominal or pelvic fluid. IMPRESSION: Possible endometrial polyp measuring 1 cm. Recommend gynecology consultation. Endometrium is normal thickness otherwise. Right ovary is normal in appearance. Left ovary is not seen. We strive to produce accurate, complete, and clear reports of imaging services. To assist us in improving patient care, this report was composed using standard report templates and voice recognition software. Therefore, it may contain abnormal punctuation, insertions and/or omissions. Occasional wrong-word or sound-alike substitutions may occur. Though we review the report and make efforts to correct it, we do recommend that the report be read carefully in proper context to recognize any text inaccuracies. Dictated by: Nikhil Carmona M.D. on 05/26/2025 at 10:31 Approved by: Nikhil Carmona M.D. on 05/26/2025 at 10:42
== END ==
LOC: US 08:20
PROVIDERS: PCP Family Medicine; Referring Provider Family Medicine; Visit Provider Family Medicine
DX: N95.0 Postmenopausal bleeding (principal); N95.8 Other specified menopausal and perimenopausal disorders
CPT/HCPCS: 76830; 76856

== ENCOUNTER 2025-08-05 07:35 | Day surgery (SDC) | payer OTHER, SELFPAY ==
[2025-07-30 08:28] VITALS: BMI 23.1
[2025-08-05] VITALS (8 sets, daily range): BP systolic 103–110; BP diastolic 56–62; PULSE 71–98; RESP 15–18; TEMP 36.2–36.4; O2SAT 97–99; BMI 23.1
--- NOTE | 2025-08-05 | PATH_ITS ---
[facility] Accession Number: [id number] No. of containers..03 Tissue . 01 Material submitted: . PART A: endometrium - ENDOMETRIAL POLYP PART B: endometrium - ENDOMETRIAL CURETTINGS PART C: endocervix - ENDOCERVICAL CURETTINGS . 01 Diagnosis: A. ENDOMETRIAL POLYP, EXCISION: Benign endometrial polyp. Negative for endometrioid intraepithelial neoplasia and malignancy. . B. ENDOMETRIUM, CURETTAGE: Fragments of benign endometrial polyp. Negative for endometrioid intraepithelial neoplasia and malignancy. . C. ENDOCERVIX, CURETTAGE: Fragments of inflamed, reactive endocervical and squamous epithelium. Negative for intraepithelial lesions. [facility] 08/17/2025 1705 Local . 01 Electronically signed: . Yvonne Perry DO, Pathologist NPI- [id number] . 01 Gross description: . A. Received in formalin with two identifiers and endometrial polyp, is a evans to brown polypoid soft tissue fragment 1.0 x 1.0 x 0.4 cm. The presumed stalk margin is inked blue. The specimen is serially sectioned and submitted entirely in cassette A1. B. Received in formalin with two identifiers and endometrial curettings, are multiple red-brown soft tissue fragments admixed with hemorrhagic material aggregating to 2.0 x 1.1 x 0.1 cm. Filtered and submitted entirely in cassette B1. C. Received in formalin with two identifiers and endocervical curettings, are multiple evans to brown soft tissue fragments admixed with mucohemorrhagic material aggregating to 2.5 x 2.1 x 0.2 cm. Filtered and submitted entirely in cassette C1. ([id number]) /ARMAAN 08/11/2025 2142 Local . 01 Pathologist provided ICD-10: N95.0 . 01 CPT . 130957, [id number], [id number] Specimen Comment: A courtesy copy of this report has been sent to [phone] Performed at: [address] [id number] MD Rene Melara MD Phone: [phone]
[2025-08-05] MEDS: ACETAMINOPHEN 325 MG TABLET 975 MG PO (08:19)
[2025-08-05] MEDS: LACTATED RINGERS 1,000 ML 42 ML IV (08:19)
--- NOTE | 2025-08-05 09:32 | PM.PREOP ---
Pre-operative Note COVID-19 COVID-19 status: Not tested Interval Note History & Physical reviewed/Exam performed by Physician: Yes Changes to H&P: No
--- NOTE | 2025-08-05 09:51 | SUR.OPER ---
Lithotomy on padded OR bed, head on pillow, arms secured on padded arm boards at <90 degrees abduction. Legs secured in padded yellow fins stirrups. strap across waist
--- NOTE | 2025-08-05 10:21 | P.OP_ITS ---
Operative Date/Time/Diagnoses Date of procedure: 08/05/25 Time of procedure: 09:30 Pre-op diagnosis: Postmenopausal bleeding Endometrial polyp Post-op diagnosis: same Procedure & Clinicians Procedure: Procedures Operation Date: 08/05/25 09:00 Actual Procedure Side Surgeon p Hysteroscopy with biopsies, dilation & curettage of the uterus Not Applicable Zachary Matthew MD Indications: Melissa is a postmenopausal 55 yo with postmenopausal bleeding and recent pelvic ultrasound showed: FINDINGS: Uterus: Uterus is retroverted and normal in size at 6.4 x 3.8 x 3.9 cm. The myometrium is heterogeneous. The endometrium measures 3.9 mm combined thickness. Possible polyp within the endometrium measuring 0.9 x 0.7 x 1.0 cm with some vascularity. Ovaries: The right ovary measures 1.0 x 1.3 x 1.2 cm, with a calculated ovarian volume of 0.8 cc. The right ovary is normal in appearance. The left ovary is not seen. Other: No pathologic free abdominal or pelvic fluid. IMPRESSION: Possible endometrial polyp measuring 1 cm. Recommend gynecology consultation. Endometrium is normal thickness otherwise. Right ovary is normal in appearance. Left ovary is not seen. Due to the localized nature of the lesion, in-office endometrial biopsy was not felt to be appropriate and as a result she is undergoing hysteroscopy with hysteroscopic polypectomy and dilation and curettage. She presents today for her scheduled surgery. Surgeon: Zachray Matthew Anesthesia Type: General Operative Notes Findings: The endometrial cavity is normal in size and shape and the endometrium itself is unremarkable, appearing atrophic. There is however a broad-based polyp arising from the midline posterior endometrial cavity routine with a a polyp forceps. B oth tubal ostia were visualized. Closure Type: not applicable Specimen(s): endometrial curettings, endometrial polyp and other (Endocervical curettings) Applied: none Estimated blood loss (mL): 10 Blood products transfused: none Procedure in detail: With the patient under general LMA in the modified dorsal lithotomy position, the perineum, vagina, and lower abdomen were prepped and draped in the usual fashion for hysteroscopy with endometrial ablation. A pre-surgical safety time- out was then taken in accordance with [facility] OR protocols. A bivalve speculum was inserted in the vagina and the cervix visualized. The anterior lip of the cervix was grasped with a single-tooth tenaculum and the endocervical canal was then dilated to 6 mm diameter. Hysteroscope was placed through the endocervical canal into the endometrial cavity and the cavity was visualized with the findings as noted above. A Bacilio stone forceps was introduced through the endocervical canal and the polyp arising from the posterior surface of the endometrial cavity was removed with the polyp forceps. Inspection of the endometrial cavity confirmed successful removal of the polyp. There were no other localized abnormalities within the endometrial cavity and the endometrium itself was unremarkable. Both tubal ostia were visualized. The hysteroscope was then withdrawn and a fractional dilation and curettage was accomplished with separate pathologic specimen submitted for the endometrial and endocervical curettings. The tenaculum was then removed from the anterior lip of the cervix and no bleeding was encountered. The speculum was then removed from the vagina and the patient awakened from anesthesia. She was then transferred to the PACU for a period of observation and recovery having tolerated the procedure well. Complications: none Post-operative Condition: stable Disposition: PACU Plan for aftercare: Routine post-op care.
== END 2025-08-05 10:46 | disposition home or self-care (01) ==
PROVIDERS: Referring Provider Obstetrics & Gynecology; Visit Provider Obstetrics & Gynecology
PROC: 0UDB8ZZ Extraction of Endometrium, Via Natural or Artificial Opening Endoscopic (ICD-10-PCS; CPT 58558; principal; 2025-08-05 09:00)
DX: N95.0 Postmenopausal bleeding (principal); N84.0 Polyp of corpus uteri
CPT/HCPCS: 58558; J1885; J2250; J2405; J2704; J3010

== ENCOUNTER → 2025-09-10 11:40 | Outpatient (CLI) | payer OTHER, SELFPAY ==
--- NOTE | 2025-09-10 11:41 | DI.MG.S_ITS ---
MM screening mammo BI: 09/10/2025. BI-RADS: 1 CLINICAL: 55-year old female for bilateral screening mammogram. Tyrer-Cuzick lifetime risk of 9.4%. No personal or first-degree family history of breast cancer. The patient is status-post reduction mammoplasty. PRIOR EXAMS 08/29/2024, 06/25/2023, 06/19/2022, 05/03/2021. MAMMOGRAPHY TECHNIQUE: 2D and 3D (tomosynthesis) digital mammographic views obtained, with additional images as needed for full coverage. Current study was also evaluated with a Computer Aided Detection (CAD) system. DENSITY C. The breasts are heterogeneously dense, which may obscure small masses. MAMMOGRAPHY FINDINGS Bilateral: No suspicious mass, asymmetry, microcalcification, or other abnormality seen. IMPRESSION: * No evidence of malignancy. RECOMMENDATIONS Bilateral * Annual screening mammography. OVERALL ASSESSMENT CATEGORY BI-RADS-1: Negative. The [employer] recommends annual screening mammography beginning at age 40 for women with average risk of breast cancer. ELECTRONICALLY SIGNED: Nitza Angel M.D. on 09/12/2025 at 11:14:35 PM PT Interpreting Station ID: [id number]
== END ==
PROVIDERS: PCP Family Medicine; Referring Provider Family Medicine; Visit Provider Family Medicine
DX: Z12.31 Encounter for screening mammogram for malignant neoplasm of breast (principal); R92.333 Mammographic heterogeneous density, bilateral breasts
CPT/HCPCS: 77063; 77067